=== PATIENT | male | born 1960 | race African-American/Black ===

== ENCOUNTER 2016-08-15 19:13 | Emergency (ER) | payer SELFPAY ==
[~2016-08-15] VITALS: Ht 170.2 cm; Wt 75.0 kg
[2016-08-15 19:27] VITALS: BP 130/78; PULSE 78; RESP 18; TEMP 97; O2SAT 99
--- NOTE | 2016-08-15 19:47 | PD ---
HPI Chief Complaint: Alcohol/Drug Intoxication Time Seen by Provider: 19:47 Travel History International Travel<30 days: No Contact w/Intl Traveler<30days: No Traveled to known affect area: No History of Present Illness HPI 55-year-old male presents to the emergency department under a Marie act for evaluation. Patient has been drinking alcohol this evening and appeared under the influence and unaware of his environment, resulting in Law enforcement brought him in for evaluation. Patient denies any acute needs. States that he has been drinking Sprite. Denies any illicit drug use. Patient has no other symptoms to report at this time. [facility] Past Medical History Medical History: Denies Significant Hx Blood Disorders: No Depression: No Cancer: No Cardiovascular Problems: No Diminished Hearing: No Endocrine: No Genitourinary: No Immune Disorder: No Musculoskeletal: No Neurologic: No Reproductive: No Respiratory: No Seizures: Yes Influenza Vaccination: No Past Surgical History AICD: No Arteriovenous Shunt: No Insulin Pump: No Joint Replacement: No Pacemaker: No Other Surgery: No Social History Alcohol Use: Yes (Daily) Tobacco Use: Yes (1 PACK A DAY) Substance Use: No Allergies-Medications (Allergen,Severity, Reaction): Coded Allergies: No Known Allergies (Verified , 08/15/16) Reported Meds & Prescriptions Reported Meds & Active Scripts Active No Active Prescriptions or Reported Medications Review of Systems ROS Limitations: Intoxication Except as stated in HPI: all other systems reviewed are Neg Physical Exam Exam Limitations: Intoxication Narrative GENERAL: Well-nourished, well-developed patient, strong smell of alcohol on his breath, in no acute distress SKIN: Warm and dry. HEAD: Normocephalic. Atraumatic EYES: No scleral icterus. No injection or drainage. NECK: Supple, trachea midline. No JVD or lymphadenopathy. CARDIOVASCULAR: Regular rate and rhythm without murmurs, gallops, or rubs. RESPIRATORY: Breath sounds equal bilaterally. No accessory muscle use. GASTROINTESTINAL: Abdomen soft, non-tender, nondistended. MUSCULOSKELETAL: No cyanosis, or edema. BACK: Nontender without obvious deformity. No CVA tenderness. Data Data Last Documented VS Vital Signs Date Time Temp Pulse Resp B/P Pulse Ox O2 Delivery O2 Flow Rate FiO2 08/15/16 19:27 97.0 78 18 130/78 99 Orders Complete Blood Count With Diff (08/15/16 19:46) Basic Metabolic Panel (Bmp) (08/15/16 19:46) Iv Access Insert/Monitor (08/15/16 19:46) Alcohol (Ethanol) (08/15/16 19:46) Diet Regular Basic (08/16/16 Breakfast) Haloperidol Inj (Haldol Inj) (08/15/16 20:14) Lorazepam Inj (Ativan Inj) (08/15/16 20:14) Labs Laboratory Tests Test 08/15/16 19:55 White Blood Count 7.5 TH/MM3 Red Blood Count 4.22 MIL/MM3 Hemoglobin 12.7 GM/DL Hematocrit 38.3 % Mean Corpuscular Volume 90.7 FL Mean Corpuscular Hemoglobin 30.0 PG Mean Corpuscular Hemoglobin 33.1 % Concent Red Cell Distribution Width 13.9 % Platelet Count 220 TH/MM3 Mean Platelet Volume 9.2 FL Neutrophils (%) (Auto) 53.2 % Lymphocytes (%) (Auto) 38.2 % Monocytes (%) (Auto) 6.4 % Eosinophils (%) (Auto) 1.3 % Basophils (%) (Auto) 0.9 % Neutrophils # (Auto) 4.0 TH/MM3 Lymphocytes # (Auto) 2.8 TH/MM3 Monocytes # (Auto) 0.5 TH/MM3 Eosinophils # (Auto) 0.1 TH/MM3 Basophils # (Auto) 0.1 TH/MM3 CBC Comment DIFF FINAL Differential Comment Sodium Level 136 MEQ/L Potassium Level 3.6 MEQ/L Chloride Level 101 MEQ/L Carbon Dioxide Level 23.8 MEQ/L Anion Gap 11 MEQ/L Blood Urea Nitrogen 8 MG/DL Creatinine 0.78 MG/DL Estimat Glomerular Filtration 126 ML/MIN Rate Random Glucose 76 MG/DL Calcium Level 8.4 MG/DL Ethyl Alcohol Level 326 MG/DL [facility] Medical Decision Making Medical Screen Exam Complete: Yes Emergency Medical Condition: Yes Medical Record Reviewed: Yes Differential Diagnosis Intoxication versus polysubstance abuse versus mood disorder versus personality disorder versus electrolyte abnormality Narrative Course 55-year-old male presents to the emergency department for evaluation under a Marie act. Patient has strong smell of alcohol on his breath. He is denying any acute medical needs. He seemed BMP are without acute concern. EtOH is 326. Patient will be monitored until he is clinically sober at which time he' ll be discharged Diagnosis Primary Impression: Alcohol intoxication Qualified Code: F10.120 - Alcohol intoxication, uncomplicated Scripts No Active Prescriptions or Reported Meds Condition: Claudia White Aug 15, 2016 19:47
[2016-08-15 20:12] LABS: BASOPHIL # 0.1 TH/MM3 (0-0.2); BASOPHIL % 0.9 % (0.0-2.0); EOSINOPHIL # 0.1 TH/MM3 (0-0.4); EOSINOPHIL % 1.3 % (0.0-4.0); HEMATOCRIT 38.3 % (39.0-51.0); HEMO FLAGS DIFF FINAL; LYMPH % 38.2 % (9.0-44.0); LYMPHOCYTE # 2.8 TH/MM3 (1.0-4.8); MEAN CELL VOLUME 90.7 FL (80.0-100.0); MEAN CORPUSCULAR HGB CONC 33.1 % (32.0-36.0); MONO % 6.4 % (0.0-8.0); NEUT % 53.2 % (16.0-70.0); PLATELET COUNT 220 TH/MM3 (150-450); RED BLOOD COUNT 4.22 MIL/MM3 (4.50-5.90); RED CELL DISTRIBUTION WIDTH 13.9 % (11.6-17.2); WHITE BLOOD COUNT 7.5 TH/MM3 (4.0-11.0)
[2016-08-15] MEDS ORDERED: HALOPERIDOL LACTATE 5 MG/ML AMP ONE (20:14)
[2016-08-15] MEDS ORDERED: LORazepam 2 MG/ML VIAL ONE (20:14)
[2016-08-15 20:38] LABS: BICARBONATE 23.8 MEQ/L (21.0-32.0); POTASSIUM 3.6 MEQ/L (3.5-5.1)
[2016-08-16] MEDS ORDERED: LORazepam 2 MG/ML VIAL IM ONE (01:15)
[2016-08-16] MEDS ORDERED: HALOPERIDOL LACTATE 5 MG/ML AMP IM ONE (01:15)
== END 2016-08-16 02:58 | disposition home or self-care (01) ==
LOC: NETRI 19:13 → NEPB 08-16 02:58
DX: F10.920 Alcohol use, unspecified with intoxication, uncomplicated (principal); Y90.8 Blood alcohol level of 240 mg/100 ml or more; F17.210 Nicotine dependence, cigarettes, uncomplicated
CPT/HCPCS: 80048; 80320; 85025; 99284; J1630; J2060

== ENCOUNTER 2016-10-03 20:37 | Emergency (ER) | payer OTHER ==
[~2016-10-03] VITALS: Ht 167.6 cm; Wt 80.0 kg
[2016-10-03 21:11] VITALS: BP 122/87; PULSE 103; RESP 20; TEMP 98.4; O2SAT 98
--- NOTE | 2016-10-03 21:42 | PD ---
HPI Chief Complaint: Medical Clearance Time Seen by Provider: 21:15 Travel History International Travel<30 days: No Contact w/Intl Traveler<30days: No Traveled to known affect area: No History of Present Illness HPI Patient 56-year-old male presents emergency department for evaluation after he was placed under Gomez's act. Patient was apparently stumbling around the street and when confronted by police officers he admitted to drinking fairly heavily tonight. Patient states he lives "in the building" has no one that he can call to come get him. He is escorted and police but is not under arrest currently. Patient has no complaints at this time except that he is here in the hospital. Denies any chest pain shortness of breath abdominal pain nausea vomiting or diarrhea. PFSH Past Medical History Blood Disorders: No Depression: No Cancer: No Cardiovascular Problems: No Diminished Hearing: No Endocrine: No Genitourinary: No Immune Disorder: No Musculoskeletal: No Neurologic: No Reproductive: No Respiratory: No Seizures: Yes Past Surgical History AICD: No Arteriovenous Shunt: No Insulin Pump: No Joint Replacement: No Pacemaker: No Other Surgery: No Social History Alcohol Use: Yes (Daily) Tobacco Use: Yes (1 PACK A DAY) Substance Use: No Allergies-Medications (Allergen,Severity, Reaction): Coded Allergies: No Known Allergies (Verified , 10/03/16) Reported Meds & Prescriptions Reported Meds & Active Scripts Active No Active Prescriptions or Reported Medications Review of Systems Except as stated in HPI: all other systems reviewed are Neg Physical Exam Narrative GENERAL: Well-developed well-nourished no apparent distress SKIN: Warm and dry. HEAD: Atraumatic. Normocephalic. EYES: Pupils equal and round. No scleral icterus. No injection or drainage. ENT: No nasal bleeding or discharge. Mucous membranes pink and moist. NECK: Trachea midline. No JVD. CARDIOVASCULAR: Regular rate and rhythm. No murmur appreciated. RESPIRATORY: No accessory muscle use. Clear to auscultation. Breath sounds equal bilaterally. GASTROINTESTINAL: Abdomen soft, non-tender, nondistended. Hepatic and splenic margins not palpable. MUSCULOSKELETAL: No obvious deformities. No clubbing. No cyanosis. No edema. NEUROLOGICAL: Awake and alert. No obvious cranial nerve deficits. Motor grossly within normal limits. Normal speech. PSYCHIATRIC: Appropriate mood and affect; insight and judgment normal. Data Data Last Documented VS Vital Signs Date Time Temp Pulse Resp B/P Pulse Ox O2 Delivery O2 Flow Rate FiO2 10/03/16 21:11 98.4 103 20 122/87 98 MDM Medical Decision Making Medical Screen Exam Complete: Yes Emergency Medical Condition: Yes Differential Diagnosis Alcohol intoxication, traumatic injury unlikely, dehydration (mild), poor social circumstance. Narrative Course Patient has no medical complaints warranting workup at this time. He is fairly belligerent and rude, he will be allowed to sleep it off in the emergency department at such time as he is clinically sober. At which time he at which time he can be discharged from the emergency department. Diagnosis Primary Impression: Alcohol intoxication Qualified Code: F10.120 - Alcohol intoxication, uncomplicated Scripts No Active Prescriptions or Reported Meds Disposition: DISCHARGE HOME Condition: Stable Mert Baer MD Oct 03, 2016 21:42
== END 2016-10-04 06:26 | disposition home or self-care (01) ==
LOC: NEDAMB 20:37 → NEPA 10-04 06:26
DX: F10.120 Alcohol abuse with intoxication, uncomplicated (principal); F17.210 Nicotine dependence, cigarettes, uncomplicated
CPT/HCPCS: 99284

== ENCOUNTER 2016-11-08 19:11 | Emergency (ER) | payer OTHER ==
[~2016-11-08] VITALS: Ht 175.3 cm; Wt 85.0 kg
[2016-11-08 19:20] VITALS: BP 133/90; PULSE 85; RESP 18; TEMP 98.4; O2SAT 95
--- NOTE | 2016-11-08 20:14 | PD ---
HPI Chief Complaint: Alcohol/Drug Intoxication Time Seen by Provider: 20:14 Travel History International Travel<30 days: No Contact w/Intl Traveler<30days: No Traveled to known affect area: No History of Present Illness HPI 56-year-old male with long-standing history of alcoholism to presents to emergency department for evaluation under Marie act. Patient states that he drinks 4-6 beers daily. 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 Denies suicidal or homicidal ideations. Denies any acute medical needs at this time. PFSH Past Medical History Blood Disorders: No Depression: No Cancer: No Cardiovascular Problems: No Diminished Hearing: No Endocrine: No Genitourinary: No Immune Disorder: No Musculoskeletal: No Neurologic: No Reproductive: No Respiratory: No Seizures: Yes Tetanus Vaccination: > 5 Years Influenza Vaccination: No Past Surgical History AICD: No Arteriovenous Shunt: No Insulin Pump: No Joint Replacement: No Pacemaker: No Other Surgery: No Social History Alcohol Use: Yes (Daily) Tobacco Use: Yes (1 PACK A DAY) Substance Use: No Allergies-Medications (Allergen,Severity, Reaction): Coded Allergies: No Known Allergies (Verified , 11/08/16) Reported Meds & Prescriptions Reported Meds & Active Scripts Active No Active Prescriptions or Reported Medications Review of Systems Except as stated in HPI: all other systems reviewed are Neg Physical Exam Narrative GENERAL: Well-nourished, well-developed patient, ambulatory and in no acute distress. SKIN: Focused skin assessment warm/dry. HEAD: Normocephalic. EYES: No scleral icterus. No injection or drainage. NECK: Supple, trachea midline. No JVD or lymphadenopathy. CARDIOVASCULAR: Regular rate and rhythm without murmurs, gallops, or rubs. RESPIRATORY: Breath sounds equal bilaterally. No accessory muscle use. GASTROINTESTINAL: Abdomen soft, non-tender, nondistended. MUSCULOSKELETAL: No cyanosis, or edema. BACK: Nontender without obvious deformity. No CVA tenderness. Data Data Last Documented VS Vital Signs Date Time Temp Pulse Resp B/P Pulse Ox O2 Delivery O2 Flow Rate FiO2 11/08/16 19:20 98.4 85 18 133/90 95 Orders Alcohol (Ethanol) (11/08/16 22:29) [facility] Medical Decision Making Medical Screen Exam Complete: Yes Emergency Medical Condition: Yes Medical Record Reviewed: Yes Differential Diagnosis Intoxication versus substance abuse versus mood disorder versus personality disorder Narrative Course 56-year-old male presents to emergency department under a Marie act. Patient appears without distress. He does smell like alcohol however he is ambulatory without difficulty. He'll be observed until he is able to find a safe mode of transportation home at which time he'll be discharged. 2230 abrasion is getting agitated wanting to leave. Alcohol level is drawn for further evaluation of patient's intoxication. Diagnosis Primary Impression: Alcohol intoxication Qualified Code: F10.120 - Alcohol intoxication, uncomplicated Referrals: [facility] (Out patient) Primary Care Physician Patient Instructions: Alcohol Intoxication (ED), General Instructions Additional Instructions: It is important that you consume alcohol moderation Follow-up with primary care provider Return immediately with any acute worsening of symptoms Med/Other Pt SpecificInfo: No Change to Meds Scripts No Active Prescriptions or Reported Meds Condition: Stable Claudia Linder Nov 08, 2016 20:14
== END 2016-11-09 06:15 | disposition home or self-care (01) ==
LOC: NEDAMB 19:11
DX: F10.120 Alcohol abuse with intoxication, uncomplicated (principal); F17.200 Nicotine dependence, unspecified, uncomplicated; Z86.69 Personal history of other diseases of the nervous system and sense organs
CPT/HCPCS: 80307; 99284

== ENCOUNTER 2016-11-18 18:38 | Emergency (ER) | payer SELFPAY ==
[2016-11-18 19:42] VITALS: BP 154/87; PULSE 76; RESP 20; TEMP 98.7; O2SAT 96
--- NOTE | 2016-11-18 19:55 | PD ---
HPI Chief Complaint: Psychiatric Symptoms Time Seen by Provider: 19:49 Travel History International Travel<30 days: No Contact w/Intl Traveler<30days: No Traveled to known affect area: No History of Present Illness HPI 56-year-old Afro[place] male brought in under the Gomez's act for EtOH intoxication. He was brought in by EMS. Patient has no medical complaints acutely. Patient is requesting no labs or IV medications. Patient has no history of trauma. He cannot tell me much he drank today. He has no known drug allergies. PFSH Past Medical History Blood Disorders: No Depression: No Cancer: No Cardiovascular Problems: No Diminished Hearing: No Endocrine: No Genitourinary: No Immune Disorder: No Musculoskeletal: No Neurologic: No Reproductive: No Respiratory: No Seizures: Yes Tetanus Vaccination: > 5 Years Past Surgical History AICD: No Arteriovenous Shunt: No Insulin Pump: No Joint Replacement: No Pacemaker: No Other Surgery: No Social History Alcohol Use: Yes (Daily) Tobacco Use: Yes (1 PACK A DAY) Substance Use: No Allergies-Medications (Allergen,Severity, Reaction): Coded Allergies: No Known Allergies (Verified , 11/18/16) Reported Meds & Prescriptions Reported Meds & Active Scripts Active No Active Prescriptions or Reported Medications Review of Systems ROS Limitations: Intoxication Except as stated in HPI: all other systems reviewed are Neg Physical Exam Exam Limitations: Intoxication Narrative GENERAL: Patient is inebriated, but able to answer questions and is cooperative. He is in no acute distress. SKIN: Warm and dry. Normal color. Normal turgor. No signs of trauma. HEAD: Atraumatic. Normocephalic. Nontender. EYES: Pupils equal and round. No scleral icterus. No injection or drainage. ENT: No nasal bleeding or discharge. Mucous membranes pink and moist. No dental injury. Pharynx is clear. Airway is patent. NECK: Trachea midline. Neck is supple nontender. CARDIOVASCULAR: Regular rate and rhythm. No murmurs gallops or rubs. RESPIRATORY: No accessory muscle use. Clear to auscultation. Breath sounds equal bilaterally. GASTROINTESTINAL: Abdomen soft, non-tender, nondistended. Hepatic and splenic margins not palpable. MUSCULOSKELETAL: Extremities without clubbing, cyanosis, or edema. No obvious deformities. NEUROLOGICAL: Awake and alert. No obvious cranial nerve deficits. Motor grossly within normal limits. Five out of 5 muscle strength in the arms and legs. Normal speech. PSYCHIATRIC: Appropriate mood and affect; insight and judgment normal. Data Data Last Documented VS Vital Signs Date Time Temp Pulse Resp B/P Pulse Ox O2 Delivery O2 Flow Rate FiO2 11/18/16 19:42 98.7 76 20 154/87 96 Orders Diet Regular Basic (11/19/16 Dinner) Ondansetron Odt (Zofran Odt) (11/18/16 20:00) [facility] Medical Decision Making Medical Screen Exam Complete: Yes Emergency Medical Condition: Yes Medical Record Reviewed: Yes Differential Diagnosis Paulina's act. EtOH intoxication. Nauseous. Narrative Course Patient is medically stable at time of exam. No labs are felt necessary at this time. Patient is given 4 mg Zofran ODT by mouth. Patient is given a meal and fluids by mouth. Patient is to sleep it off until he can ambulate with safety, and be discharged at that time. Diagnosis Primary Impression: Alcohol intoxication Qualified Code: F10.120 - Alcohol intoxication, uncomplicated Referrals: [facility] as needed Patient Instructions: Abuse of Alcohol (ED), General Instructions Med/Other Pt SpecificInfo: No Meds Exist/No RX given Scripts No Active Prescriptions or Reported Meds Disposition: 01 DISCHARGE HOME Condition: Stable Anthony Cadena Nov 18, 2016 19:55
[2016-11-18] MEDS ORDERED: ONDANSETRON ODT 4 MG TAB PO ONE (20:00)
== END 2016-11-18 22:02 | disposition home or self-care (01) ==
LOC: NEPE 18:38
DX: F10.120 Alcohol abuse with intoxication, uncomplicated (principal); F17.210 Nicotine dependence, cigarettes, uncomplicated
CPT/HCPCS: 99284

== ENCOUNTER 2017-01-02 21:26 | Emergency (ER) | payer OTHER ==
[~2017-01-02] VITALS: Ht 182.9 cm; Wt 95.0 kg
[2017-01-02 21:33] VITALS: BP 119/79; PULSE 93; RESP 18; TEMP 98.2; O2SAT 94
[2017-01-03 01:00] VITALS: BP 111/73; PULSE 87; RESP 16; O2SAT 97
--- NOTE | 2017-01-03 01:09 | PD ---
HPI Chief Complaint: Alcohol/Drug Intoxication Time Seen by Provider: 01:06 Travel History International Travel<30 days: No Contact w/Intl Traveler<30days: No Traveled to known affect area: No History of Present Illness HPI 56-year-old black male presents to emergency department under Marchman act due to alcohol intoxication. This is a patient known to the ER staff and myself her prior visits for the same. The patient states that is not a threat to himself or others. He merely states that is intoxicated. He would like to go home. He denies any toxic ingestions. PFSH Past Medical History Narrative Medical Seizure disorder, alcoholism Blood Disorders: No Depression: No Cancer: No Cardiovascular Problems: No Diminished Hearing: No Endocrine: No Genitourinary: No Immune Disorder: No Musculoskeletal: No Neurologic: No Reproductive: No Respiratory: No Seizures: Yes Past Surgical History AICD: No Arteriovenous Shunt: No Insulin Pump: No Joint Replacement: No Pacemaker: No Other Surgery: No Social History Alcohol Use: Yes (Daily) Tobacco Use: Yes (1 PACK A DAY) Substance Use: No Allergies-Medications (Allergen,Severity, Reaction): Coded Allergies: No Known Allergies (Verified , 01/02/17) Reported Meds & Prescriptions Reported Meds & Active Scripts Active No Active Prescriptions or Reported Medications Review of Systems ROS Limitations: Intoxication Physical Exam Narrative GENERAL: Well-nourished, well-developed patient. Smells of EtOH and appears intoxicated SKIN: Warm and dry. HEAD: Normocephalic and atraumatic. EYES: No scleral icterus. No injection or drainage. ENT: No nasal drainage noted. Mucous membranes pink. Airway patent. NECK: Supple, trachea midline. Moves head freely without obvious discomfort. CARDIOVASCULAR: Regular rate and rhythm without murmurs, gallops, or rubs. RESPIRATORY: Breath sounds equal bilaterally. No accessory muscle use. GASTROINTESTINAL: Abdomen soft, non-tender, nondistended. EXTREMITIES: No cyanosis or edema. BACK: Nontender without obvious deformity. No CVA tenderness. NEURO: Patient is alert and oriented. no sensorimotor deficits. Nonfocal. Slurred speech. PSYCH: No delusions. No auditory or visual hallucinations. Data Data Last Documented VS Vital Signs Date Time Temp Pulse Resp B/P Pulse Ox O2 Delivery O2 Flow Rate FiO2 01/03/17 01:00 87 16 111/73 97 Room Air 01/02/17 21:33 98.2 [facility] Medical Decision Making Medical Screen Exam Complete: Yes Emergency Medical Condition: Yes Medical Record Reviewed: Yes Differential Diagnosis Differential diagnoses: Alcohol intoxication, substance abuse, electrolyte abnormality, malingering Narrative Course This is an intoxicated 56-year-old black male known to myself and the ER staff for alcohol abuse. He will be allowed to sleep it off here in the ER once exhibits sobriety the patient will have his Marchman act lifted and he'll be able to go home. This is alcohol intoxication, Marchman act Diagnosis Primary Impression: Alcohol intoxication Qualified Code: F10.920 - Alcohol intoxication, uncomplicated Additional Impression: Marchman act-lifted Patient Instructions: General Instructions Additional Instructions: Rest. Increase fluids. Avoid alcohol. Avoid illegal substances. Follow-up with [facility] for detox. Do not operate a car or any heavy machinery under the influence of alcohol or drugs. Follow-up with a medical doctor this week. Return to the ER for emergencies Med/Other Pt SpecificInfo: No Meds Exist/No RX given Scripts No Active Prescriptions or Reported Meds Disposition: 01 DISCHARGE HOME Condition: Stable (neuro) Haroon Lopez January 03, 2017 01:09
[2017-01-03 04:19] VITALS: BP 115/70; PULSE 68; RESP 18; O2SAT 99
== END 2017-01-03 06:02 | disposition home or self-care (01) ==
LOC: NEDAMB 21:26 → NEPD 01-03 06:02
DX: F10.120 Alcohol abuse with intoxication, uncomplicated (principal); F17.200 Nicotine dependence, unspecified, uncomplicated
CPT/HCPCS: 99282

== ENCOUNTER 2017-06-08 18:08 | Emergency (ER) | payer OTHER ==
[~2017-06-08] VITALS: Ht 182.9 cm; Wt 100.0 kg
[2017-06-08 19:11] VITALS: RESP 16
[2017-06-08 19:17] VITALS: BP 131/91; PULSE 79; RESP 16; O2SAT 98
--- NOTE | 2017-06-08 19:25 | PD ---
HPI Chief Complaint: Alcohol/Drug Intoxication Time Seen by Provider: 18:57 Travel History International Travel<30 days: No Contact w/Intl Traveler<30days: No Traveled to known affect area: No History of Present Illness HPI 56-year-old male presents to the emergency room under Marchman act for evaluation of alcohol intoxication. Patient is well-known to the emergency room and has been here multiple times for the same. According to police report , patient was wandering down the road, slurring speech, and unable to answer questions appropriately. Patient denies any medical complaints at this time. Denies any chronic medical conditions or daily medications. Denies any history of stroke. He is most concerned with eating and asked if he could get something in his stomach and then go home. Patient states he drinks daily but will not quantify. Denies any illicit drug use. PFSH Past Medical History Blood Disorders: No Depression: No Cancer: No Cardiovascular Problems: No Diminished Hearing: No Endocrine: No Genitourinary: No Immune Disorder: No Musculoskeletal: No Neurologic: No Reproductive: No Respiratory: No Immunizations Current: Yes Seizures: Yes Past Surgical History AICD: No Arteriovenous Shunt: No Insulin Pump: No Joint Replacement: No Pacemaker: No Other Surgery: No Social History Alcohol Use: Yes (Daily) Tobacco Use: Yes (1 PACK A DAY) Substance Use: No Allergies-Medications (Allergen,Severity, Reaction): Coded Allergies: No Known Allergies (Verified , 01/02/17) Reported Meds & Prescriptions Reported Meds & Active Scripts Active No Active Prescriptions or Reported Medications Review of Systems Except as stated in HPI: all other systems reviewed are Neg Physical Exam Narrative GENERAL: Well-nourished, well-developed male in no acute distress. Afebrile. Ambulatory. SKIN: Focused skin assessment warm/dry. HEAD: Normocephalic. EYES: No scleral icterus. No injection or drainage. NECK: Supple, trachea midline. No JVD or lymphadenopathy. CARDIOVASCULAR: Regular rate and rhythm without murmurs, gallops, or rubs. RESPIRATORY: Breath sounds equal bilaterally. No accessory muscle use. NEUROLOGICAL: Awake and alert. Cranial nerves II through XII intact. Motor and sensory grossly within normal limits. Five out of 5 muscle strength in all muscle groups. Normal speech. No pronator drift in upper or lower extremities. Data Data Last Documented VS Vital Signs Date Time Temp Pulse Resp B/P (MAP) Pulse Ox O2 Delivery O2 Flow Rate FiO2 06/08/17 19:17 79 16 131/91 (104) 98 Room Air Orders Orders Alcohol (Ethanol) (06/08/17 19:14) Labs Laboratory Tests Test 06/08/17 19:43 Ethyl Alcohol Level 289 MG/DL [facility] Medical Decision Making Medical Screen Exam Complete: Yes Emergency Medical Condition: Yes Medical Record Reviewed: Yes Differential Diagnosis Alcohol intoxication, alcohol abuse, drug induced mood disorder, CVA unlikely Narrative Course 56-year-old male presents to the emergency room under Diana coronel for alcohol intoxication after being found wandering down the road, stumbling, and slurring his speech. Patient has been seen in the emergency room multiple times for the same. States he doesn't know why he is here and he is hungry, requesting food. Physical exam is reassuring. Patient is answering questions appropriately, though slowly. No focal neurological deficits. Vital signs stable. She will be given food. Alcohol level obtained and is 289. He will be monitored in the ER and discharged when clinically sober. He understands and agrees to plan. Diagnosis Primary Impression: Alcohol intoxication Qualified Codes: F10.920 - Alcohol use, unspecified with intoxication, uncomplicated Referrals: [facility] (Out patient) Additional Instructions: Follow-up with [facility] for detox. Return to the emergency room for worsening symptoms. Scripts No Active Prescriptions or Reported Meds Disposition: 01 DISCHARGE HOME Condition: Stable Ni Pearson Jun 08, 2017 19:25
[2017-06-09 01:11] VITALS: BP 140/76
== END 2017-06-09 01:10 | disposition home or self-care (01) ==
LOC: NEDAMB 18:08
DX: F10.129 Alcohol abuse with intoxication, unspecified (principal); R56.9 Unspecified convulsions; F17.200 Nicotine dependence, unspecified, uncomplicated
CPT/HCPCS: 80307; 99283

== ENCOUNTER 2017-07-11 21:39 | Emergency (ER) | payer OTHER ==
[2017-07-11 22:07] VITALS: BP 133/91; PULSE 73; RESP 18; TEMP 98.2; O2SAT 96
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
== END 2017-07-12 02:32 | disposition home or self-care (01) ==
LOC: NEPE 21:39
DX: F10.129 Alcohol abuse with intoxication, unspecified (principal); F17.200 Nicotine dependence, unspecified, uncomplicated
CPT/HCPCS: 99283

== ENCOUNTER 2017-07-14 17:23 | Inpatient (IN) | payer OTHER ==
[~2017-07-14] VITALS: Ht 180.3 cm; Wt 85.0 kg
[2017-07-14] MEDS ORDERED: IOHEXOL 350 MG/ML 10 ML VIAL (for RAD DIAG) IVCONTRAST ONE (17:24)
[2017-07-14] MEDS ORDERED: LIDOCAINE 1%/EPINEPHrine 1:100,000 SOLN 20 ML VIAL ONE (17:27)
[2017-07-14] MEDS ORDERED: ceFAZolin 2 GM PREMIX 50 ML ONE (17:27)
[2017-07-14] MEDS ORDERED: TETANUS IMMUNE GLOBULIN (HUMAN) 250 UNITS/ML SYRINGE ONE (17:27)
[2017-07-14 17:42] VITALS: O2SAT 97
[2017-07-14 17:43] VITALS: O2SAT 97
[2017-07-14 17:48] LABS: AUTOMATED NEUTROPHIL # 3.5 TH/MM3 (1.8-7.7); BASOPHIL # 0.1 TH/MM3 (0-0.2); BASOPHIL % 1.2 % (0.0-2.0); EOSINOPHIL # 0.2 TH/MM3 (0-0.4); EOSINOPHIL % 2.5 % (0.0-4.0); HEMATOCRIT 40.8 % (39.0-51.0); HEMOGLOBIN 13.4 GM/DL (13.0-17.0); LYMPH % 43.3 % (9.0-44.0); LYMPHOCYTE # 3.2 TH/MM3 (1.0-4.8); MEAN CELL VOLUME 93.3 FL (80.0-100.0); MEAN CORPUSCULAR HEMOGLOBIN 30.6 PG (27.0-34.0); MEAN CORPUSCULAR HGB CONC 32.8 % (32.0-36.0); MEAN PLATELET VOLUME 9.1 FL (7.0-11.0); MONO % 5.9 % (0.0-8.0); MONOCYTE # 0.4 TH/MM3 (0-0.9); NEUT % 47.1 % (16.0-70.0); PLATELET COUNT 231 TH/MM3 (150-450); RED BLOOD COUNT 4.38 MIL/MM3 (4.50-5.90); RED CELL DISTRIBUTION WIDTH 14.3 % (11.6-17.2); WHITE BLOOD COUNT 7.4 TH/MM3 (4.0-11.0)
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
[2017-07-14 18:05] LABS: PROTHROMBIN TIME - PATIENT 10.3 SEC (9.8-11.6)
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
[2017-07-14 18:25] VITALS: BP 153/89; PULSE 73; RESP 17; O2SAT 96
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
[2017-07-14] MEDS ORDERED: ONDANSETRON HCL 4 MG/2 ML VIAL IV PUSH PRN (19:15)
[2017-07-14] MEDS ORDERED: MISCELLANEOUS NURSING INFORMATION XX SCH (19:15)
[2017-07-14] MEDS ORDERED: CHLORHEXIDINE GLUCONATE 2 % 1 PACK (2 CLOTHS) TOP PRN (19:15)
[2017-07-14] MEDS ORDERED: ACETAMINOPHEN/HYDROcodone 325 MG/5 MG TAB PO PRN (19:15)
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
[2017-07-14 19:40] VITALS: BP 114/75; PULSE 80; RESP 18; O2SAT 97
[2017-07-14] MEDS: MULTIVITAMIN INJ 10 ML, THIAMINE INJ 100 MG, FOLIC ACID INJ 1 MG in SODIUM CHLORID 0.9%... IV SCH (20:09)
[2017-07-14 22:10] VITALS: BP 111/65; PULSE 69; RESP 20; TEMP 98.2; O2SAT 96
[2017-07-14] MEDS: DOCUSATE SODIUM 100 MG CAP PO SCH (22:20)
[2017-07-14] MEDS: ceFAZolin 2 GM PREMIX 50 ML IV SCH (22:26)
[2017-07-14] MEDS: ACETAMINOPHEN/HYDROcodone 325 MG/5 MG TAB PO PRN (22:52)
[2017-07-15] VITALS (8 sets, daily range): BP systolic 112–154; BP diastolic 62–84; PULSE 61–90; RESP 18–20; TEMP 97.8–99.2; O2SAT 95–97
[2017-07-15 03:43] LABS: AUTOMATED NEUTROPHIL # 5.7 TH/MM3 (1.8-7.7); BASOPHIL % 0.3 % (0.0-2.0); EOSINOPHIL % 0.1 % (0.0-4.0); HEMATOCRIT 35.3 % (39.0-51.0); HEMOGLOBIN 11.8 GM/DL (13.0-17.0); LYMPH % 15.5 % (9.0-44.0); LYMPHOCYTE # 1.1 TH/MM3 (1.0-4.8); MEAN CELL VOLUME 93.5 FL (80.0-100.0); MEAN CORPUSCULAR HEMOGLOBIN 31.2 PG (27.0-34.0); MEAN CORPUSCULAR HGB CONC 33.4 % (32.0-36.0); MONO % 6.3 % (0.0-8.0); MONOCYTE # 0.5 TH/MM3 (0-0.9); NEUT % 77.8 % (16.0-70.0); PLATELET COUNT 168 TH/MM3 (150-450); RED BLOOD COUNT 3.78 MIL/MM3 (4.50-5.90); RED CELL DISTRIBUTION WIDTH 14.4 % (11.6-17.2); WHITE BLOOD COUNT 7.3 TH/MM3 (4.0-11.0)
[2017-07-15] MEDS ORDERED: CHLORHEXIDINE GLUCONATE 2 % 1 PACK (2 CLOTHS) TOP SCH (04:00)
[2017-07-15 04:11] LABS: ALBUMIN 3.1 GM/DL (3.4-5.0); AST (GOT) 49 U/L (15-37); BICARBONATE 22.2 MEQ/L (21.0-32.0); BLOOD UREA NITROGEN 5 MG/DL (7-18); CALCIUM 7.5 MG/DL (8.5-10.1); CHLORIDE 105 MEQ/L (98-107); CREATININE 0.75 MG/DL (0.60-1.30); GLOMERULAR FILTRATION RATE 109 ML/MIN (>89); GLUCOSE,RANDOM 98 MG/DL (74-106); SODIUM (NA) 138 MEQ/L (136-145)
[2017-07-15 04:15] LABS: ALKALINE PHOSPHATASE 67 U/L (45-117); ALT (GPT) 27 U/L (12-78); TOTAL BILIRUBIN ADULT 0.6 MG/DL (0.2-1.0); TOTAL PROTEIN 6.5 GM/DL (6.4-8.2)
[2017-07-15] MEDS: ceFAZolin 2 GM PREMIX 50 ML IV SCH ×3 (05:19→22:19)
[2017-07-15] MEDS ORDERED: DOCU1CAP39 PO (08:59)
[2017-07-15] MEDS: ACETAMINOPHEN/HYDROcodone 325 MG/5 MG TAB PO PRN ×3 (09:29→22:17)
[2017-07-15] MEDS: DOCUSATE SODIUM 100 MG CAP PO SCH ×2 (09:30→22:16)
[2017-07-15] MEDS: MORPHINE SULFATE 4 MG/ML INJ IV PUSH PRN (11:35)
[2017-07-15] MEDS: MULTIVITAMIN INJ 10 ML, THIAMINE INJ 100 MG, FOLIC ACID INJ 1 MG in SODIUM CHLORID 0.9%... IV SCH (22:21)
[2017-07-16] VITALS: BP 169/86; PULSE 84; RESP 20; TEMP 98.6; O2SAT 95
[2017-07-16 04:58] VITALS: BP 155/94; PULSE 82; RESP 20; TEMP 98.3; O2SAT 97
[2017-07-16] MEDS: ceFAZolin 2 GM PREMIX 50 ML IV SCH ×3 (05:25→21:12)
[2017-07-16] MEDS: ACETAMINOPHEN/HYDROcodone 325 MG/5 MG TAB PO PRN ×2 (05:27→09:27)
[2017-07-16 08:00] VITALS: PULSE 63
[2017-07-16] MEDS: DOCUSATE SODIUM 100 MG CAP PO SCH ×2 (09:28→21:11)
[2017-07-16] MEDS ORDERED: PNEUMOCOCCAL POLYVALENT INJ 25 MCG/0.5 ML SYR IM ONE (10:00)
[2017-07-16 12:00] VITALS: BP_SYST 125; BP_SYST 150; BP_DIAS 82; BP_DIAS 83; PULSE 100; PULSE 77; PULSE 81; RESP 18; TEMP 98.5; O2SAT 95; O2SAT 98
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
[2017-07-16] MEDS: MORPHINE SULFATE 4 MG/ML INJ IV PUSH PRN ×2 (13:36→21:01)
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
[2017-07-16] MEDS: ACETAMINOPHEN 1000 MG/100 ML 100 ML IV SCH ×2 (15:57→21:12)
[2017-07-16 16:00] VITALS: BP 143/100; PULSE 80; PULSE 84; RESP 18; TEMP 98.7; O2SAT 96
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
[2017-07-16] MEDS: ENOXAPARIN SODIUM 30 MG/0.3 ML SYRINGE SQ SCH (18:12)
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
[2017-07-16 20:00] VITALS: BP 149/97; PULSE 99; RESP 18; TEMP 98.2; O2SAT 98
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
[2017-07-16] MEDS: MAGNESIUM HYDROXIDE SUSP 30 ML CUP PO SCH (21:11)
[2017-07-16] MEDS: MULTIVITAMIN INJ 10 ML, THIAMINE INJ 100 MG, FOLIC ACID INJ 1 MG in SODIUM CHLORID 0.9%... IV SCH (21:12)
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
[2017-07-17] VITALS (7 sets, daily range): BP systolic 105–163; BP diastolic 65–93; PULSE 71–100; RESP 18–19; TEMP 97.9–98.7; O2SAT 92–97
[2017-07-17] MEDS: ACETAMINOPHEN 1000 MG/100 ML 100 ML IV SCH ×4 (02:17→20:54)
[2017-07-17] MEDS ORDERED: SODIUM CHLORID 0.9% 500 ML IV PRN (04:45)
[2017-07-17] MEDS ORDERED: LACTATED RINGER'S 1000 ML IV PRN (04:45)
[2017-07-17] MEDS ORDERED: CHLORHEXIDINE GLUCONATE 2 % 1 PACK (2 CLOTHS) TOPICAL PRN (04:45)
[2017-07-17] MEDS ORDERED: METOPROLOL TARTRATE 25 MG TAB PO PRN (04:45)
[2017-07-17] MEDS ORDERED: POVIDONE IODINE 5% (ANTISEPSIS KIT) 4 APPLICATIONS EACH NARE PRN (04:45)
[2017-07-17] MEDS: ENOXAPARIN SODIUM 30 MG/0.3 ML SYRINGE SQ SCH (06:12)
[2017-07-17] MEDS: ceFAZolin 2 GM PREMIX 50 ML IV SCH ×2 (06:12→18:13)
[2017-07-17] MEDS: MORPHINE SULFATE 4 MG/ML INJ IV PUSH PRN (07:36)
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
[2017-07-17] MEDS: DOCUSATE SODIUM 100 MG CAP PO SCH ×2 (08:40→20:54)
[2017-07-17] MEDS: MAGNESIUM HYDROXIDE SUSP 30 ML CUP PO SCH ×2 (08:41→20:54)
--- NOTE | 2017-07-17 11:36 | EKG ---
Date Performed: 07/17/2017 Time Performed: 07:40:14 PTAGE: 89 years EKG: Sinus rhythm VOLTAGE CRITERIA FOR LVH ABNORMAL ECG NO PREVIOUS TRACING DOCTOR: Pedro Gore Interpretating Date/Time 07/17/2017 11:35:28
[2017-07-17] MEDS ORDERED: LABETALOL HCL 100 MG/20 ML VIAL IV ONE (12:00)
[2017-07-17] MEDS ORDERED: ONDANSETRON HCL 4 MG/2 ML VIAL IV PUSH ONE (12:00)
[2017-07-17] MEDS ORDERED: ePHEDrine/NS 25 MG/5 ML SYRINGE IV ONE (12:00)
[2017-07-17] MEDS ORDERED: LIDOCAINE HCL 1% PF 5 ML SYRINGE OTHER ONE (12:00)
[2017-07-17] MEDS: KETOROLAC TROMETHAMINE 30 MG/ML (IVP) VIAL IV PUSH SCH ×2 (12:00→18:00)
[2017-07-17] MEDS ORDERED: PROPOFOL 200 MG/20 ML AMP IV ONE (12:00)
[2017-07-17] MEDS ORDERED: STERILE WATER FOR INJECTION 20 ML VIAL IV ONE (12:00)
[2017-07-17] MEDS ORDERED: ceFAZolin INJ 1,000 MG VIAL ONE (13:19)
[2017-07-17] MEDS ORDERED: VANCOMYCIN HCL 1000 MG VIAL ONE (13:19)
[2017-07-17] MEDS ORDERED: GENTAMICIN SULFATE 80 MG/2 ML VIAL ONE (13:26)
[2017-07-17] MEDS ORDERED: Post-op Orders (for Pharmacy) XX ONE (13:30)
[2017-07-17] MEDS ORDERED: ENOXAPARIN SODIUM 30 MG/0.3 ML SYRINGE SQ SCH (13:30)
[2017-07-17] MEDS ORDERED: MISCELLANEOUS NURSING INFORMATION XX PRN (13:30)
[2017-07-17] MEDS ORDERED: MORPHINE SULFATE 4 MG/ML INJ IV PUSH PRN (13:30)
[2017-07-17] MEDS ORDERED: NALOXONE HCL 0.4 MG/ML AMP IV PUSH PRN (13:30)
[2017-07-17] MEDS: ERGOCALCIFEROL (VIT D2) 50,000 UNIT CAP PO SCH (13:30)
[2017-07-17] MEDS ORDERED: diphenhydrAMINE HCL 25 MG CAP PO PRN (13:30)
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
[2017-07-17] MEDS ORDERED: *morphine SULFATE 8 MG/ML PERIprocedure ONLY ONE ×2 (15:26→15:33)
[2017-07-17] MEDS ORDERED: *ENALAPRILAT 1.25 MG/ML VIAL PERIprocedural Use ONLY ONE ×2 (15:34→16:00)
[2017-07-17] MEDS ORDERED: *HYDROmorphone PF 1 MG VIAL PERIprocedural Use ONLY ONE (15:43)
--- NOTE | 2017-07-17 16:04 | RADRPT ---
EXAM DATE/TIME: 07/17/2017 14:16 [facility] COMPARISON: KNEE RIGHT LTD (1 OR 2 VWS), July 16, 2017, 20:36. INDICATIONS : ORIF right tibal plateau fracture. MEDICAL HISTORY : Unobtainable. SURGICAL HISTORY : Unobtainable. ENCOUNTER: Subsequent ACUITY: 3 days PAIN SCORE: Non-responsive. LOCATION: Right knee. FINDINGS: Two view examination of the right knee demonstrates postsurgical changes following open reduction and internal fixation of a lateral tibial plateau fracture the right knee. An extra medullary plate with stabilization screws have been placed. There is good alignment of the fracture fragments. Lateral donn int compartment appears to be anatomically aligned. CONCLUSION: Satisfactory postoperative appearance of the right knee status post ORIF of a lateral tibial plateau fracture. Obed Allen MD on July 17, 2017 at 16:01 Board Certified Radiologist. This report was verified electronically.
--- NOTE | 2017-07-17 16:09 | RADRPT ---
EXAM DATE/TIME: 07/17/2017 14:16 [facility] COMPARISON: KNEE LEFT LTD (1 OR 2VWS), July 16, 2017, 15:23. INDICATIONS : Placement of external fixator. MEDICAL HISTORY : Unobtainable. SURGICAL HISTORY : Unobtainable. ENCOUNTER: Subsequent ACUITY: 3 days PAIN SCORE: Non-responsive. LOCATION: Left knee. FINDINGS: Two view examination of the left knee demonstrates comminuted fractures of the proximal tibia and fib al. There is satisfactory apposition the fracture fragments following placement of an external fixat or. CONCLUSION: Stable satisfactory alignment of comminuted fractures involving the proximal left tibia and fibula fo llowing placement of an external fixator. Obed Allen MD on July 17, 2017 at 16:02 Board Certified Radiologist. This report was verified electronically.
[2017-07-17] MEDS: KETOROLAC TROMETHAMINE 30 MG/ML (IVP) VIAL IVP SCH ×2 (16:45→22:00)
[2017-07-17] MEDS ORDERED: DO NOT ADM ANY ANTICOAGULANT DRUGS PRN (17:00)
[2017-07-17] MEDS: CALCIUM/VITAMIN D 250 MG/125 U TAB PO SCH (18:00)
[2017-07-17] MEDS: LACTATED RINGER'S 1000 ML INJ 1,000 ML IV SCH (21:00)
[2017-07-18] VITALS (7 sets, daily range): BP systolic 107–149; BP diastolic 67–90; PULSE 77–98; RESP 16–20; TEMP 97.4–99.1; O2SAT 94–100
[2017-07-18] MEDS: KETOROLAC TROMETHAMINE 30 MG/ML (IVP) VIAL IV PUSH SCH ×2 (01:59→06:17)
[2017-07-18] MEDS: LACTATED RINGER'S 1000 ML INJ 1,000 ML IV SCH ×2 (02:00→03:30)
[2017-07-18] MEDS: ceFAZolin 2 GM PREMIX 50 ML IV SCH ×3 (02:00→18:06)
[2017-07-18] MEDS: KETOROLAC TROMETHAMINE 30 MG/ML (IVP) VIAL IVP SCH ×2 (06:00→13:28)
--- NOTE | 2017-07-18 07:01 | PD.ORT.PN ---
Subjective Subjective Remarks Patient awake and alert. No acute distress. Pain reasonably well-controlled Objective Vitals Vital Signs Date Time Temp Pulse Resp B/P (MAP) Pulse Ox O2 Delivery O2 Flow Rate FiO2 07/18/17 00:00 97.4 77 18 107/67 (80) 94 07/17/17 20:00 97.9 83 18 105/65 (78) 93 07/17/17 20:00 100 07/17/17 16:55 58 14 158/94 (115) 100 Nasal Cannula 2 07/17/17 16:45 66 14 161/99 (119) 100 Nasal Cannula 2 07/17/17 16:30 68 14 154/108 (123) 95 Nasal Cannula 2 07/17/17 16:15 65 14 175/101 (125) 100 Nasal Cannula 2 07/17/17 16:00 79 14 163/94 (117) 99 Nasal Cannula 2 07/17/17 15:45 70 14 166/107 (126) 100 Nasal Cannula 2 07/17/17 15:30 71 14 179/118 (138) 100 Nasal Cannula 2 07/17/17 15:15 73 14 160/103 (122) 100 Nasal Cannula 2 07/17/17 15:06 98.2 98 14 156/104 (121) 98 Nasal Cannula 2 07/17/17 10:47 98.7 73 19 152/87 (108) 96 07/17/17 09:11 19 07/17/17 08:00 89 07/17/17 07:41 17 07/17/17 07:12 18 I/O 07/17/17 07/17/17 07/17/17 07/18/17 07/18/17 07/18/17 07:00 15:00 23:00 07:00 15:00 23:00 Intake Total 610 ml 650 ml 930 ml Output Total 225 ml 275 ml Balance 610 ml -225 ml 375 ml 930 ml IV Total 610 ml 100 ml 930 ml Other 550 ml Output Urine Total 225 ml 200 ml Estimated Blood Loss 75 ml Result Diagram: 07/15/17 0333 07/15/17 033 Objective Remarks Left leg--external fixation in place, pin sites clean, mild to moderate swelling , neurovascularly intact left foot Right leg--clean dry dressing in place., Knee immobilizer on, neurovascularly intact right foot Assessment & Plan Assessment and Plan Left tibia plateau fracture --Postoperative day #1 status post closed reduction external fixation Nonweightbearing Possible ORIF on Sunday if swelling improves Ice and elevate left leg Right tibial plateau fracture--postop day #1 status post open reduction internal fixation Nonweightbearing right leg CK S Physical therapy for passive range of motion Asaf Collazo MD Jul 18, 2017 07:01
[2017-07-18] MEDS: CALCIUM/VITAMIN D 250 MG/125 U TAB PO SCH ×3 (09:03→18:06)
[2017-07-18] MEDS: MAGNESIUM HYDROXIDE SUSP 30 ML CUP PO SCH (09:03)
[2017-07-18] MEDS: CHOLECALCIFEROL (VIT D3) 1000 UNIT TAB PO SCH (09:03)
[2017-07-18] MEDS: DOCUSATE SODIUM 100 MG CAP PO SCH (09:04)
[2017-07-18 10:46] LABS: HEMATOCRIT 29.1 % (39.0-51.0); HEMOGLOBIN 9.6 GM/DL (13.0-17.0)
[2017-07-18] MEDS ORDERED: ENOXAPARIN SODIUM 30 MG/0.3 ML SYRINGE SQ SCH (13:00)
[2017-07-18] MEDS: VANCOMYCIN INJ 1,000 MG in SODIUM CHLOR 0.9% 250 ML INJ 250 ML IV SCH (13:28)
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
[2017-07-18] MEDS ORDERED: LACTULOSE SYRUP 20 GM/30 ML CUP PO PRN (13:45)
[2017-07-18] MEDS ORDERED: LACTULOSE SYRUP 20 GM/30 ML CUP PO ONE (13:45)
[2017-07-18] MEDS: ACETAMINOPHEN/HYDROcodone 325 MG/10 MG TAB PO PRN ×2 (14:57→20:33)
[2017-07-18] MEDS: MULTIVITAMINS/MINERALS THERAPEUTIC TAB PO SCH (15:57)
[2017-07-18] MEDS: FOLIC ACID 1 MG TAB PO SCH (15:57)
[2017-07-18] MEDS: THIAMINE HCL 100 MG TAB PO SCH (15:58)
[2017-07-18] MEDS: DOCUSATE SODIUM 50 MG/SENNA 8.6 MG TAB PO SCH (21:00)
[2017-07-19] VITALS (10 sets, daily range): BP systolic 112–159; BP diastolic 75–92; PULSE 78–96; RESP 18–20; TEMP 97–99.4; O2SAT 95–97
[2017-07-19] MEDS: ceFAZolin 2 GM PREMIX 50 ML IV SCH ×2 (01:13→10:58)
[2017-07-19] MEDS: VANCOMYCIN INJ 1,000 MG in SODIUM CHLOR 0.9% 250 ML INJ 250 ML IV SCH ×2 (01:55→13:47)
[2017-07-19] MEDS: ACETAMINOPHEN/HYDROcodone 325 MG/10 MG TAB PO PRN ×3 (04:02→21:35)
[2017-07-19 05:05] LABS: HEMATOCRIT 30.2 % (39.0-51.0); HEMOGLOBIN 9.7 GM/DL (13.0-17.0)
[2017-07-19] MEDS: MORPHINE SULFATE 2 MG/ML INJ IV PUSH PRN (06:23)
[2017-07-19] MEDS ORDERED: ENOXAPARIN SODIUM 30 MG/0.3 ML SYRINGE SQ ONE (07:00)
[2017-07-19] MEDS: THIAMINE HCL 100 MG TAB PO SCH (08:29)
[2017-07-19] MEDS: CALCIUM/VITAMIN D 250 MG/125 U TAB PO SCH ×3 (08:29→17:09)
[2017-07-19] MEDS: FOLIC ACID 1 MG TAB PO SCH (08:29)
[2017-07-19] MEDS: CHOLECALCIFEROL (VIT D3) 1000 UNIT TAB PO SCH (08:29)
[2017-07-19] MEDS: DOCUSATE SODIUM 50 MG/SENNA 8.6 MG TAB PO SCH ×2 (08:29→21:35)
[2017-07-19] MEDS: MULTIVITAMINS/MINERALS THERAPEUTIC TAB PO SCH (08:29)
[2017-07-19] MEDS: POLYETHYLENE GLYCOL 17 GM PKG PO SCH (08:34)
[2017-07-19] MEDS: KETOROLAC TROMETHAMINE 30 MG/ML (IVP) VIAL IV PUSH SCH ×2 (08:37→16:32)
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
[2017-07-19] MEDS ORDERED: SODIUM CHLORID 0.9% 500 ML IV PRN (22:45)
[2017-07-19] MEDS ORDERED: LACTATED RINGER'S 1000 ML IV PRN (22:45)
[2017-07-19] MEDS ORDERED: CHLORHEXIDINE GLUCONATE 2 % 1 PACK (2 CLOTHS) TOPICAL PRN (22:45)
[2017-07-19] MEDS ORDERED: POVIDONE IODINE 5% (ANTISEPSIS KIT) 4 APPLICATIONS EACH NARE PRN (22:45)
[2017-07-20] VITALS (8 sets, daily range): BP systolic 122–158; BP diastolic 86–97; PULSE 78–104; RESP 18–20; TEMP 97.7–99; O2SAT 94–100
[2017-07-20] MEDS: KETOROLAC TROMETHAMINE 30 MG/ML (IVP) VIAL IV PUSH SCH
--- NOTE | 2017-07-20 07:25 | PD.ORT.PN ---
Subjective Subjective Remarks POD 3 s/p ORIF right tibial plateau s/p exfix left tibial plateau doing well. no changes Objective Vitals Vital Signs Date Time Temp Pulse Resp B/P (MAP) Pulse Ox O2 Delivery O2 Flow Rate FiO2 07/20/17 04:00 99.0 84 18 158/93 (114) 95 07/20/17 00:00 78 07/20/17 00:00 97.7 92 18 122/86 (98) 98 07/19/17 23:03 18 07/19/17 22:06 81 07/19/17 21:43 18 07/19/17 20:05 78 07/19/17 20:00 99.1 86 18 116/75 (89) 97 07/19/17 16:19 99.4 86 20 159/92 (114) 96 07/19/17 13:39 97 07/19/17 13:00 80 07/19/17 12:44 98.2 92 20 117/75 (89) 95 07/19/17 08:36 98.8 86 20 151/83 (105) 95 I/O 07/19/17 07/19/17 07/19/17 07/20/17 07/20/17 07/20/17 07:00 15:00 23:00 07:00 15:00 23:00 Intake Total 300 ml 480 ml 240 ml Output Total 2000 ml 400 ml 800 ml Balance -1700 ml 80 ml -560 ml Intake Oral 480 ml 240 ml IV Total 300 ml Output Urine Total 2000 ml 400 ml 800 ml # Voids 1 Result Diagram: 07/19/17 0443 Objective Remarks Left leg--external fixation in place, pin sites clean, mild to moderate swelling , neurovascularly intact left foot Right leg--clean dry dressing in place., Knee immobilizer on, neurovascularly intact right foot Assessment & Plan Assessment and Plan 1) Left tibia plateau fracture --Postoperative day #3 status post closed reduction external fixation Nonweightbearing swelling has improved plan for surgery today for ORIF and removal of exfix 2) Right tibial plateau fracture--postop day #3 status post open reduction internal fixation Nonweightbearing right leg CKS Physical therapy for passive range of motion no quad sets, leg lifts, active motion, strengthening Victorino Espinoza/[employer] PA Jul 20, 2017 07:25
[2017-07-20] MEDS: MORPHINE SULFATE 2 MG/ML INJ IV PUSH PRN ×2 (08:21→23:03)
[2017-07-20] MEDS: CALCIUM/VITAMIN D 250 MG/125 U TAB PO SCH ×3 (09:00→16:57)
[2017-07-20] MEDS: DOCUSATE SODIUM 50 MG/SENNA 8.6 MG TAB PO SCH ×2 (09:00→13:39)
[2017-07-20] MEDS ORDERED: GENTAMICIN SULFATE 80 MG/2 ML VIAL ONE (09:15)
[2017-07-20] MEDS ORDERED: HYDR-3583 PO (09:35)
[2017-07-20] MEDS ORDERED: VITA500012 PO (09:35)
[2017-07-20] MEDS ORDERED: CALCTAB19 PO (09:35)
[2017-07-20] MEDS ORDERED: XARE10TA PO (09:35)
[2017-07-20] MEDS ORDERED: ceFAZolin 2 GM PREMIX 50 ML ONE (09:40)
[2017-07-20] MEDS ORDERED: VANCOMYCIN HCL 1000 MG VIAL ONE (09:40)
[2017-07-20] MEDS ORDERED: ACETAMINOPHEN 1000 MG/100 ML 100 ML IV ONE (10:56)
[2017-07-20] MEDS ORDERED: Post-op Orders (for Pharmacy) XX ONE (11:30)
--- NOTE | 2017-07-20 11:34 | PD.OP ---
cc: Asaf Segura MD Operative Report Date of Surgery: Jul 20, 2017 Preoperative Diagnosis: Displaced left tibia bicondylar plateau fracture Postoperative Diagnosis: Procedure: Open reduction internal fixation left tibial plateau fracture, removal of external fixation Anesthesia: Gen. Surgeon: Asaf Segura [facility] Supervisor(s): MARIVEL Martin PA-C The surgical procedure was assisted by my physician power plant assistant. My P.A. presence was necessary throughout this case for the manipulation and positioning of the surgical extremity. My P.A. was assisting me throughout the duration of this procedure. The skill set of a physician power plant assistant was medically necessary to complete this procedure. During the surgical case the screening tech was working at the back table and the physician power plant assistant was directly assisting me. Operation and Findings: Plan of activity: Nonweightbearing bilateral lower extremities Implants used: ITS This patient was seen and evaluated preoperatively. Patient sustained an injury resulting bilateral tibial plateau fractures. Informed consent was obtained preoperatively after detailed discussion of the risks and benefits of surgery. Risk of surgery including bleeding, infection, nonunion, painful hardware, stiffness, loss of motion, arthritis, need for knee replacement, as well as medical complications including blood clots, stroke, heart attack, and were discussed. I also discussed the possibility of using allograft bone graft . Preoperatively the operative site was marked. Patient was brought to the operating room and placed on the operating room table. Intravenous sedation and general endotracheal anesthesia were administered. IV antibiotics were given and a time out procedure was preformed. Procedure began with removal of a portion of the external fixator. Clamps were loosened. Clamps and bars were now removed. The pins were left in place at this time. The operative leg was prepped with alcohol followed by Hibiclens and draped in the usual sterile fashion. Procedure began with a 4-inch curvilinear incision over the anterolateral knee. Subcutaneous tissue was treated with Bovie. Iliotibial band was split in line with fibers. The fracture was now visualized. There was a split in the articular surface. Traction was now applied. The articular surface split was reduced first. Fracture tenaculums were used to aid in reduction. There was minimal depression of the articular surface. K wires were used to hold provisional fixation. Articular surface reduced into excellent alignment. Next the tibial shaft was reduced up to the proximal segment of the tibia. K- wires were used for provisional fixation. Fluoroscopy revealed excellent alignment of fracture. A ITS proximal tibial plate was selected. The plate was provisionally held with K-wires. 4.5 cortical screws were used compress plate to bone distally, and a periarticular clamp was used to compress the medial and lateral tibial plateau fracture fragments together. Multiple locking screws were now placed proximally. Additional screws were placed in the shaft. K-wires were removed. Final fluoroscopy showed excellent alignment of fracture with well-placed hardware. The incision was thoroughly irrigated. Arthrotomy and iliotibial band closed with #1 Vicryl,. Subcutaneous tissues closed with 3-0 Vicryl and skin was closed with melody. Sterile dressings were applied. The patient was transferred to recovery in stable condition. Asaf Segura MD Jul 20, 2017 11:34
[2017-07-20] MEDS ORDERED: DO NOT ADM ANY ANTICOAGULANT DRUGS PRN (11:54)
[2017-07-20] MEDS ORDERED: MIDAZOLAM HCL 2 MG/2 ML VIAL IV ONE (12:00)
[2017-07-20] MEDS ORDERED: MORPHINE SULFATE 4 MG/ML INJ IV ONE (12:00)
[2017-07-20] MEDS ORDERED: PROPOFOL 200 MG/20 ML AMP IV ONE (12:00)
[2017-07-20] MEDS ORDERED: PHENYLEPH/NS 1000 MCG/10 ML SYR IV ONE (12:00)
[2017-07-20] MEDS ORDERED: ePHEDrine/NS 25 MG/5 ML SYRINGE IV ONE (12:00)
[2017-07-20] MEDS ORDERED: LACTATED RINGER'S 1000 ML INJ 1,000 ML IV ONE (12:00)
[2017-07-20] MEDS ORDERED: SUCCINYLCHOLINE CHLORIDE 100 MG/5 ML SYRINGE IV PUSH ONE (12:00)
[2017-07-20] MEDS ORDERED: LIDOCAINE HCL 1% PF 5 ML SYRINGE OTHER ONE (12:00)
[2017-07-20] MEDS ORDERED: ONDANSETRON HCL 4 MG/2 ML VIAL IV PUSH ONE (12:00)
[2017-07-20] MEDS ORDERED: DEXAMETHASONE SOD PHOS 4 MG/ML VIAL IV ONE (12:00)
[2017-07-20] MEDS ORDERED: ESMOLOL HCL 100 MG/10 ML VIAL IV ONE (12:00)
[2017-07-20] MEDS: LACTATED RINGER'S 1000 ML INJ 1,000 ML IV SCH (13:00)
[2017-07-20] MEDS: FOLIC ACID 1 MG TAB PO SCH (13:39)
[2017-07-20] MEDS: CHOLECALCIFEROL (VIT D3) 1000 UNIT TAB PO SCH (13:39)
[2017-07-20] MEDS: MULTIVITAMINS/MINERALS THERAPEUTIC TAB PO SCH (13:39)
[2017-07-20] MEDS: THIAMINE HCL 100 MG TAB PO SCH (13:39)
[2017-07-20] MEDS: ACETAMINOPHEN/HYDROcodone 325 MG/10 MG TAB PO PRN ×3 (13:40→21:59)
[2017-07-20] MEDS: POLYETHYLENE GLYCOL 17 GM PKG PO SCH (13:40)
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
[2017-07-20] MEDS: ceFAZolin 2 GM PREMIX 50 ML IV SCH (16:58)
[2017-07-20] MEDS: VANCOMYCIN INJ 1,000 MG in SODIUM CHLOR 0.9% 250 ML INJ 250 ML IV SCH (21:49)
--- NOTE | 2017-07-20 23:02 | RADRPT ---
EXAM DATE/TIME: 07/20/2017 11:13 [place] COMPARISON: No previous studies available for comparison. INDICATIONS : Left tibia fracture- ORIF. MEDICAL HISTORY : None. SURGICAL HISTORY : None. ENCOUNTER: Initial ACUITY: 1 day PAIN SCORE: Non-responsive. LOCATION: Left Tibia. FINDINGS: 5 intraoperative spot images of the left tibia. Lateral internal fixation plate with multiple transfi maxine screws identified extending from the proximal metaphysis to the mid shaft. Proximal tibia shaft fracture is identified. Alignment is near-anatomic. Proximal fibula fracture also noted. Osteoarthrit ic findings of the knee noted. CONCLUSION: Intraoperative images of internal fixation hardware across proximal tibia fracture. Armen Bates MD on July 20, 2017 at 22:57 Board Certified Radiologist. This report was verified electronically.
[2017-07-21] VITALS (10 sets, daily range): BP systolic 146–160; BP diastolic 81–99; PULSE 77–99; RESP 16–20; TEMP 96.9–99; O2SAT 94–98
[2017-07-21] MEDS: LACTATED RINGER'S 1000 ML INJ 1,000 ML IV SCH ×2 (01:30→13:39)
[2017-07-21] MEDS: ceFAZolin 2 GM PREMIX 50 ML IV SCH ×3 (02:21→17:16)
[2017-07-21] MEDS: ACETAMINOPHEN/HYDROcodone 325 MG/10 MG TAB PO PRN ×4 (04:03→22:47)
--- NOTE | 2017-07-21 07:27 | PD.ORT.PN ---
Subjective Subjective Remarks POD 4 s/p ORIF right tibial plateau POD 1 s/p ORIF left tibial plateau doing well. no changes Objective Vitals Vital Signs Date Time Temp Pulse Resp B/P (MAP) Pulse Ox O2 Delivery O2 Flow Rate FiO2 07/21/17 05:04 18 07/21/17 04:39 98.5 96 20 160/96 (117) 97 07/21/17 00:18 98.3 90 19 154/89 (110) 95 07/21/17 00:00 80 07/20/17 23:08 18 07/20/17 20:00 98.3 99 19 151/96 (114) 94 07/20/17 20:00 93 07/20/17 16:33 98.3 104 20 149/97 (114) 94 07/20/17 15:33 91 07/20/17 14:09 100 07/20/17 12:30 109 16 140/91 (107) 100 Room Air 07/20/17 12:15 104 16 144/92 (109) 100 Room Air 07/20/17 11:55 97.6 123 16 118/89 (99) 98 Nasal Cannula 4 07/20/17 08:24 98.8 83 20 143/88 (106) 98 I/O 07/20/17 07/20/17 07/20/17 07/21/17 07/21/17 07/21/17 07:00 15:00 23:00 07:00 15:00 23:00 Intake Total 240 ml 1440 ml 1250 ml Output Total 800 ml 250 ml 250 ml 1400 ml 700 ml Balance -560 ml 1190 ml -250 ml -150 ml -700 ml Intake Oral 240 ml 240 ml IV Total 1250 ml Other 1200 ml Output Urine Total 800 ml 200 ml 250 ml 1400 ml 700 ml Estimated Blood Loss 50 ml # Voids 1 Result Diagram: 07/19/17 0443 Objective Remarks Left leg--mild bloody drainage on bandage. otherwise clean and dry. +CKS. full sensation distally. stiffness to dorsiflexion. neg niki Right leg--clean dry dressing in place., Knee immobilizer on, neurovascularly intact right foot Assessment & Plan Assessment and Plan 1) Left tibia plateau fracture s/p ORIF - POD 1 -NWB -PROM of knee 0-90 -no quad sets, leg lifts, strengthening -daily dressing changes POD 2 -keep clean and dry 2) Right tibial plateau fracture s/p ORIF - POD 4 Nonweightbearing right leg CKS Physical therapy for passive range of motion no quad sets, leg lifts, active motion, strengthening Victorino Espinoza/First Liliana LYNN Jul 21, 2017 07:27
[2017-07-21 08:23] LABS: HEMATOCRIT 29.5 % (39.0-51.0); HEMOGLOBIN 9.7 GM/DL (13.0-17.0)
[2017-07-21] MEDS: MULTIVITAMINS/MINERALS THERAPEUTIC TAB PO SCH (08:54)
[2017-07-21] MEDS: DOCUSATE SODIUM 50 MG/SENNA 8.6 MG TAB PO SCH ×2 (08:54→22:46)
[2017-07-21] MEDS: FOLIC ACID 1 MG TAB PO SCH (08:54)
[2017-07-21] MEDS: POLYETHYLENE GLYCOL 17 GM PKG PO SCH (08:55)
[2017-07-21] MEDS: CHOLECALCIFEROL (VIT D3) 1000 UNIT TAB PO SCH (08:55)
[2017-07-21] MEDS: THIAMINE HCL 100 MG TAB PO SCH (08:55)
[2017-07-21] MEDS: CALCIUM/VITAMIN D 250 MG/125 U TAB PO SCH ×3 (08:55→17:16)
[2017-07-21] MEDS: VANCOMYCIN INJ 1,000 MG in SODIUM CHLOR 0.9% 250 ML INJ 250 ML IV SCH ×2 (09:54→22:48)
[2017-07-21] MEDS: ENOXAPARIN SODIUM 30 MG/0.3 ML SYRINGE SQ SCH ×2 (10:00→22:46)
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
[2017-07-21] MEDS ORDERED: WHEEMIS3 (13:14)
[2017-07-22] VITALS (10 sets, daily range): BP systolic 112–156; BP diastolic 65–89; PULSE 82–105; RESP 18–20; TEMP 97.9–99.6; O2SAT 95–97
[2017-07-22] MEDS: LACTATED RINGER'S 1000 ML INJ 1,000 ML IV SCH (02:30)
[2017-07-22] MEDS: ceFAZolin 2 GM PREMIX 50 ML IV SCH ×2 (03:37→08:58)
[2017-07-22] MEDS: ACETAMINOPHEN/HYDROcodone 325 MG/10 MG TAB PO PRN ×3 (08:43→21:23)
[2017-07-22] MEDS: fentaNYL 50 MCG/HR PATCH T-DERMAL SCH (08:44)
[2017-07-22] MEDS: GABAPENTIN 300 MG CAP PO SCH ×3 (08:45→17:15)
[2017-07-22] MEDS: MULTIVITAMINS/MINERALS THERAPEUTIC TAB PO SCH (08:46)
[2017-07-22] MEDS: FOLIC ACID 1 MG TAB PO SCH (08:46)
[2017-07-22] MEDS: CALCIUM/VITAMIN D 250 MG/125 U TAB PO SCH ×3 (08:46→17:15)
[2017-07-22] MEDS: DOCUSATE SODIUM 50 MG/SENNA 8.6 MG TAB PO SCH ×2 (08:47→21:23)
[2017-07-22] MEDS: THIAMINE HCL 100 MG TAB PO SCH (08:47)
[2017-07-22] MEDS: CHOLECALCIFEROL (VIT D3) 1000 UNIT TAB PO SCH (08:47)
[2017-07-22] MEDS: POLYETHYLENE GLYCOL 17 GM PKG PO SCH (08:48)
--- NOTE | 2017-07-22 08:51 | PD.ORT.PN ---
Subjective Subjective Remarks POD 5 s/p ORIF right tibial plateau POD 2 s/p ORIF left tibial plateau doing well. no changes Objective Vitals Vital Signs Date Time Temp Pulse Resp B/P (MAP) Pulse Ox O2 Delivery O2 Flow Rate FiO2 07/22/17 08:00 97.9 87 18 139/89 (106) 97 07/22/17 04:00 98.9 92 18 128/84 (99) 97 07/22/17 02:56 82 07/22/17 00:00 98.5 86 20 140/65 (90) 95 07/21/17 20:00 99.0 87 19 148/99 (115) 98 07/21/17 18:18 79 07/21/17 16:00 96.9 81 18 152/93 (112) 96 07/21/17 13:32 99 07/21/17 12:00 98.5 90 18 146/98 (114) 95 I/O 07/21/17 07/21/17 07/21/17 07/22/17 07/22/17 07/22/17 07:00 15:00 23:00 07:00 15:00 23:00 Intake Total 1250 ml 300 ml 300 ml Output Total 1400 ml 1450 ml 600 ml 750 ml Balance -150 ml -1150 ml -600 ml -450 ml IV Total 1250 ml 300 ml 300 ml Output Urine Total 1400 ml 1450 ml 600 ml 750 ml # Bowel Movements 1 0 Result Diagram: 07/21/17 0710 Objective Remarks Left leg--mild bloody drainage on bandage. otherwise clean and dry. +CKS. full sensation distally. stiffness to dorsiflexion. neg niki Right leg--clean dry dressing in place., Knee immobilizer on, neurovascularly intact right foot Assessment & Plan Assessment and Plan 1) Left tibia plateau fracture s/p ORIF - POD 2 -NWB -PROM of knee 0-90 -no quad sets, leg lifts, strengthening -daily dressing changes POD 2 -keep clean and dry 2) Right tibial plateau fracture s/p ORIF - POD 5 Nonweightbearing right leg CKS Physical therapy for passive range of motion no quad sets, leg lifts, active motion, strengthening Lovenox -CM for rehab placement Victorino Jones/Functional Director PA Jul 22, 2017 08:51
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
[2017-07-22] MEDS: ENOXAPARIN SODIUM 30 MG/0.3 ML SYRINGE SQ SCH ×2 (12:30→21:24)
[2017-07-22] MEDS: BACITRACIN TOP OINT 15 GM TUBE TOP SCH ×2 (12:30→21:24)
[2017-07-22] MEDS: METHOCARBAMOL 500 MG TAB PO SCH ×2 (15:02→21:23)
[2017-07-23] VITALS (8 sets, daily range): BP systolic 109–136; BP diastolic 76–86; PULSE 84–102; RESP 17–18; TEMP 98.4–99.4; O2SAT 94–100
[2017-07-23] MEDS: METHOCARBAMOL 500 MG TAB PO SCH ×3 (05:40→21:32)
[2017-07-23] MEDS: THIAMINE HCL 100 MG TAB PO SCH (09:24)
[2017-07-23] MEDS: CHOLECALCIFEROL (VIT D3) 1000 UNIT TAB PO SCH (09:24)
[2017-07-23] MEDS: ENOXAPARIN SODIUM 30 MG/0.3 ML SYRINGE SQ SCH ×2 (09:24→23:10)
[2017-07-23] MEDS: CALCIUM/VITAMIN D 250 MG/125 U TAB PO SCH ×3 (09:24→18:18)
[2017-07-23] MEDS: FOLIC ACID 1 MG TAB PO SCH (09:24)
[2017-07-23] MEDS: MULTIVITAMINS/MINERALS THERAPEUTIC TAB PO SCH (09:24)
[2017-07-23] MEDS: POLYETHYLENE GLYCOL 17 GM PKG PO SCH (09:25)
[2017-07-23] MEDS: DOCUSATE SODIUM 50 MG/SENNA 8.6 MG TAB PO SCH ×2 (09:25→21:00)
[2017-07-23] MEDS: GABAPENTIN 300 MG CAP PO SCH ×3 (09:25→18:18)
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
[2017-07-23] MEDS: BACITRACIN TOP OINT 15 GM TUBE TOP SCH ×2 (17:30→21:32)
[2017-07-23] MEDS: ACETAMINOPHEN/HYDROcodone 325 MG/10 MG TAB PO PRN (21:32)
[2017-07-24] VITALS: BP 119/77; PULSE 90; RESP 18; TEMP 98.5; O2SAT 95
[2017-07-24 04:00] VITALS: BP 128/77; PULSE 88; RESP 18; TEMP 98.1; O2SAT 95
[2017-07-24 04:43] LABS: AUTOMATED NEUTROPHIL # 5.4 TH/MM3 (1.8-7.7); BASOPHIL # 0.1 TH/MM3 (0-0.2); BASOPHIL % 1.1 % (0.0-2.0); EOSINOPHIL # 0.3 TH/MM3 (0-0.4); EOSINOPHIL % 3.2 % (0.0-4.0); HEMATOCRIT 32.4 % (39.0-51.0); HEMOGLOBIN 10.7 GM/DL (13.0-17.0); LYMPH % 26.7 % (9.0-44.0); LYMPHOCYTE # 2.6 TH/MM3 (1.0-4.8); MEAN CELL VOLUME 93.2 FL (80.0-100.0); MEAN CORPUSCULAR HEMOGLOBIN 30.7 PG (27.0-34.0); MEAN CORPUSCULAR HGB CONC 32.9 % (32.0-36.0); MEAN PLATELET VOLUME 8.4 FL (7.0-11.0); MONO % 13.8 % (0.0-8.0); MONOCYTE # 1.3 TH/MM3 (0-0.9); NEUT % 55.2 % (16.0-70.0); PLATELET COUNT 380 TH/MM3 (150-450); RED BLOOD COUNT 3.48 MIL/MM3 (4.50-5.90); RED CELL DISTRIBUTION WIDTH 14.2 % (11.6-17.2); WHITE BLOOD COUNT 9.7 TH/MM3 (4.0-11.0)
[2017-07-24 05:10] LABS: BICARBONATE 32.3 MEQ/L (21.0-32.0); CALCIUM 9.4 MG/DL (8.5-10.1); CREATININE 0.82 MG/DL (0.60-1.30)
[2017-07-24] MEDS: METHOCARBAMOL 500 MG TAB PO SCH ×3 (05:49→22:12)
[2017-07-24] MEDS: ACETAMINOPHEN/HYDROcodone 325 MG/10 MG TAB PO PRN ×3 (05:49→22:11)
[2017-07-24 08:13] VITALS: BP 120/78; PULSE 76; RESP 18; TEMP 98.2; O2SAT 97
[2017-07-24] MEDS: THIAMINE HCL 100 MG TAB PO SCH (09:03)
[2017-07-24] MEDS: CHOLECALCIFEROL (VIT D3) 1000 UNIT TAB PO SCH (09:03)
[2017-07-24] MEDS: CALCIUM/VITAMIN D 250 MG/125 U TAB PO SCH ×3 (09:03→17:12)
[2017-07-24] MEDS: DOCUSATE SODIUM 50 MG/SENNA 8.6 MG TAB PO SCH ×2 (09:03→21:00)
[2017-07-24] MEDS: POLYETHYLENE GLYCOL 17 GM PKG PO SCH (09:03)
[2017-07-24] MEDS: GABAPENTIN 300 MG CAP PO SCH ×3 (09:03→17:12)
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
[2017-07-24] MEDS: BACITRACIN TOP OINT 15 GM TUBE TOP SCH ×2 (12:54→22:12)
[2017-07-24] MEDS: ENOXAPARIN SODIUM 30 MG/0.3 ML SYRINGE SQ SCH ×2 (12:54→22:12)
[2017-07-24] MEDS: ERGOCALCIFEROL (VIT D2) 50,000 UNIT CAP PO SCH (12:55)
[2017-07-24 13:10] VITALS: BP 122/80; PULSE 108; RESP 18; TEMP 97.4; O2SAT 95
[2017-07-24 16:14] VITALS: BP 97/77; PULSE 101; RESP 17; TEMP 98.8; O2SAT 96
[2017-07-24 20:00] VITALS: BP 151/63; PULSE 98; RESP 20; TEMP 98.4; O2SAT 99
[2017-07-25] VITALS: BP 117/80; PULSE 83; RESP 20; TEMP 98.3; O2SAT 98
[2017-07-25] MEDS: ACETAMINOPHEN/HYDROcodone 325 MG/10 MG TAB PO PRN ×2 (03:19→22:41)
[2017-07-25 04:00] VITALS: BP 123/84; PULSE 92; RESP 20; TEMP 98.4; O2SAT 98
[2017-07-25] MEDS: METHOCARBAMOL 500 MG TAB PO SCH ×3 (05:51→22:41)
[2017-07-25 08:45] VITALS: BP 127/82; PULSE 83; RESP 17; TEMP 97.9; O2SAT 94
[2017-07-25] MEDS: POLYETHYLENE GLYCOL 17 GM PKG PO SCH (09:32)
[2017-07-25] MEDS: DOCUSATE SODIUM 50 MG/SENNA 8.6 MG TAB PO SCH ×2 (09:32→21:00)
[2017-07-25] MEDS: THIAMINE HCL 100 MG TAB PO SCH (09:32)
[2017-07-25] MEDS: GABAPENTIN 300 MG CAP PO SCH ×3 (09:32→17:54)
[2017-07-25] MEDS: CALCIUM/VITAMIN D 250 MG/125 U TAB PO SCH ×3 (09:33→17:54)
[2017-07-25] MEDS: fentaNYL 50 MCG/HR PATCH T-DERMAL SCH (09:33)
[2017-07-25] MEDS: CHOLECALCIFEROL (VIT D3) 1000 UNIT TAB PO SCH (09:33)
[2017-07-25] MEDS: BACITRACIN TOP OINT 15 GM TUBE TOP SCH ×2 (09:34→22:47)
--- NOTE | 2017-07-25 09:48 | PD.ORT.PN ---
Subjective Subjective Remarks Resting comfortably with no new complaints. Bilateral knee immobilizers in place. Objective Vitals Vital Signs Date Time Temp Pulse Resp B/P (MAP) Pulse Ox O2 Delivery O2 Flow Rate FiO2 07/25/17 04:00 98.4 92 20 123/84 (97) 98 07/25/17 00:00 98.3 83 20 117/80 (92) 98 07/24/17 20:00 98.4 98 20 151/63 (92) 99 07/24/17 16:14 98.8 101 17 97/77 (84) 96 07/24/17 13:10 97.4 108 18 122/80 (94) 95 I/O 07/24/17 07/24/17 07/24/17 07/25/17 07/25/17 07/25/17 07:00 15:00 23:00 07:00 15:00 23:00 Intake Total 1280 ml 820 ml Output Total 875 ml 200 ml 1850 ml 1700 ml Balance -875 ml -200 ml -570 ml -880 ml Intake Oral 1280 ml 820 ml Output Urine Total 875 ml 200 ml 1850 ml 1700 ml # Bowel Movements 0 0 Result Diagram: 07/24/17 0416 07/24/17 0416 Objective Remarks Left leg--mild bloody drainage on bandage. otherwise clean and dry. +CKS. full sensation distally. stiffness to dorsiflexion. neg niki Right leg--clean dry dressing in place., Knee immobilizer on, neurovascularly intact right foot Assessment & Plan Assessment and Plan 1) Left tibia plateau fracture s/p ORIF - POD 5 -NWB -PROM of knee 0-90 -no quad sets, leg lifts, strengthening -daily dressing changes POD 2 -keep clean and dry 2) Right tibial plateau fracture s/p ORIF - POD 8 Nonweightbearing right leg CKS Physical therapy for passive range of motion no quad sets, leg lifts, active motion, strengthening [facility] Orthopedic clear for discharge -CM for rehab placement Follow-up with Dr. Segura or [facility] in 2 weeks Juan Manuel Silva Jr. Jul 25, 2017 09:47
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
[2017-07-25 12:28] VITALS: BP 131/95; PULSE 90; RESP 18; TEMP 99.4; O2SAT 100
[2017-07-25] MEDS: ENOXAPARIN SODIUM 30 MG/0.3 ML SYRINGE SQ SCH ×2 (13:25→22:47)
[2017-07-25 16:21] VITALS: BP 117/87; PULSE 93; RESP 17; TEMP 98.3; O2SAT 94
[2017-07-25 21:25] VITALS: BP 131/88; PULSE 87; RESP 16; TEMP 98.3; O2SAT 98
[2017-07-26 00:37] VITALS: BP 131/82; PULSE 90; RESP 18; TEMP 98.9; O2SAT 95
[2017-07-26 05:30] VITALS: BP 137/90; PULSE 85; RESP 18; TEMP 98.7; O2SAT 97
[2017-07-26] MEDS: ACETAMINOPHEN/HYDROcodone 325 MG/10 MG TAB PO PRN ×4 (06:05→20:58)
[2017-07-26] MEDS: METHOCARBAMOL 500 MG TAB PO SCH ×3 (06:05→20:59)
[2017-07-26 08:10] VITALS: BP 127/85; PULSE 89; RESP 20; TEMP 98.1; O2SAT 98
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
[2017-07-26] MEDS: POLYETHYLENE GLYCOL 17 GM PKG PO SCH (09:45)
[2017-07-26] MEDS: GABAPENTIN 300 MG CAP PO SCH ×3 (09:45→17:35)
[2017-07-26] MEDS: THIAMINE HCL 100 MG TAB PO SCH (09:45)
[2017-07-26] MEDS: CALCIUM/VITAMIN D 250 MG/125 U TAB PO SCH ×3 (09:45→17:35)
[2017-07-26] MEDS: CHOLECALCIFEROL (VIT D3) 1000 UNIT TAB PO SCH (09:47)
[2017-07-26] MEDS: DOCUSATE SODIUM 50 MG/SENNA 8.6 MG TAB PO SCH ×2 (09:47→20:57)
[2017-07-26] MEDS: BACITRACIN TOP OINT 15 GM TUBE TOP SCH ×2 (09:47→20:58)
[2017-07-26] MEDS: ENOXAPARIN SODIUM 30 MG/0.3 ML SYRINGE SQ SCH ×2 (11:29→23:32)
[2017-07-26 12:43] VITALS: BP 127/82; PULSE 89; RESP 20; TEMP 97.4; O2SAT 95
[2017-07-26 15:48] VITALS: BP 119/78; PULSE 91; RESP 20; TEMP 98.4; O2SAT 95
[2017-07-26 21:36] VITALS: BP 119/76; PULSE 88; RESP 16; TEMP 98.9; O2SAT 97
[2017-07-27 00:12] VITALS: BP 114/76; PULSE 79; RESP 16; TEMP 98.3; O2SAT 98
[2017-07-27] MEDS: METHOCARBAMOL 500 MG TAB PO SCH ×3 (05:44→21:16)
[2017-07-27 06:10] VITALS: BP 126/80; PULSE 74; RESP 16; TEMP 98.3; O2SAT 99
[2017-07-27 07:49] VITALS: BP 127/83; PULSE 80; RESP 20; TEMP 98.6; O2SAT 97
[2017-07-27] MEDS: THIAMINE HCL 100 MG TAB PO SCH (09:43)
[2017-07-27] MEDS: POLYETHYLENE GLYCOL 17 GM PKG PO SCH (09:43)
[2017-07-27] MEDS: CALCIUM/VITAMIN D 250 MG/125 U TAB PO SCH ×3 (09:44→18:08)
[2017-07-27] MEDS: ACETAMINOPHEN/HYDROcodone 325 MG/10 MG TAB PO PRN ×4 (09:44→21:17)
[2017-07-27] MEDS: CHOLECALCIFEROL (VIT D3) 1000 UNIT TAB PO SCH (09:44)
[2017-07-27] MEDS: GABAPENTIN 300 MG CAP PO SCH ×3 (09:44→18:08)
[2017-07-27] MEDS: DOCUSATE SODIUM 50 MG/SENNA 8.6 MG TAB PO SCH ×2 (09:44→21:15)
[2017-07-27] MEDS: BACITRACIN TOP OINT 15 GM TUBE TOP SCH ×2 (09:45→21:16)
[2017-07-27] MEDS: ENOXAPARIN SODIUM 30 MG/0.3 ML SYRINGE SQ SCH ×2 (10:48→22:32)
[2017-07-27 11:41] VITALS: BP 136/92; PULSE 89; RESP 20; TEMP 98.8; O2SAT 100
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
[2017-07-27 15:47] VITALS: BP 127/92; PULSE 77; RESP 20; TEMP 98.5; O2SAT 98
[2017-07-27 20:00] VITALS: BP 125/78; PULSE 75; RESP 18; TEMP 98.6; O2SAT 100
[2017-07-28] VITALS (7 sets, daily range): BP systolic 121–137; BP diastolic 78–87; PULSE 56–87; RESP 18; TEMP 98.1–98.8; O2SAT 96–99
[2017-07-28] MEDS: METHOCARBAMOL 500 MG TAB PO SCH ×3 (06:08→21:07)
[2017-07-28] MEDS: ACETAMINOPHEN/HYDROcodone 325 MG/10 MG TAB PO PRN ×2 (06:08→21:07)
[2017-07-28] MEDS: DOCUSATE SODIUM 50 MG/SENNA 8.6 MG TAB PO SCH ×2 (07:44→21:07)
[2017-07-28] MEDS: CALCIUM/VITAMIN D 250 MG/125 U TAB PO SCH ×3 (07:44→16:24)
[2017-07-28] MEDS: THIAMINE HCL 100 MG TAB PO SCH (07:44)
[2017-07-28] MEDS: CHOLECALCIFEROL (VIT D3) 1000 UNIT TAB PO SCH (07:44)
[2017-07-28] MEDS: GABAPENTIN 300 MG CAP PO SCH ×3 (07:44→16:24)
[2017-07-28] MEDS: POLYETHYLENE GLYCOL 17 GM PKG PO SCH (07:44)
[2017-07-28] MEDS: fentaNYL 50 MCG/HR PATCH T-DERMAL SCH (07:45)
[2017-07-28] MEDS: MAGNESIUM HYDROXIDE SUSP 30 ML CUP PO SCH ×2 (08:02→21:07)
[2017-07-28] MEDS: BACITRACIN TOP OINT 15 GM TUBE TOP SCH ×2 (08:03→21:07)
[2017-07-28] MEDS: ENOXAPARIN SODIUM 30 MG/0.3 ML SYRINGE SQ SCH ×2 (10:43→23:14)
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
[2017-07-29 04:00] VITALS: BP 125/75; PULSE 77; RESP 18; TEMP 98.1; O2SAT 98
[2017-07-29] MEDS: METHOCARBAMOL 500 MG TAB PO SCH ×3 (06:02→21:05)
[2017-07-29] MEDS: ACETAMINOPHEN/HYDROcodone 325 MG/10 MG TAB PO PRN ×4 (06:03→23:31)
[2017-07-29 08:14] VITALS: BP 118/79; PULSE 75; RESP 18; TEMP 98.3; O2SAT 97
[2017-07-29] MEDS: CALCIUM/VITAMIN D 250 MG/125 U TAB PO SCH ×3 (08:48→17:47)
[2017-07-29] MEDS: MAGNESIUM HYDROXIDE SUSP 30 ML CUP PO SCH ×2 (08:48→21:07)
[2017-07-29] MEDS: GABAPENTIN 300 MG CAP PO SCH ×3 (08:48→17:47)
[2017-07-29] MEDS: DOCUSATE SODIUM 50 MG/SENNA 8.6 MG TAB PO SCH ×2 (08:48→21:05)
[2017-07-29] MEDS: CHOLECALCIFEROL (VIT D3) 1000 UNIT TAB PO SCH (08:48)
[2017-07-29] MEDS: THIAMINE HCL 100 MG TAB PO SCH (08:48)
[2017-07-29] MEDS: POLYETHYLENE GLYCOL 17 GM PKG PO SCH (08:50)
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
[2017-07-29] MEDS: fentaNYL 25 MCG/HR PATCH T-DERMAL SCH (13:05)
[2017-07-29] MEDS: ENOXAPARIN SODIUM 30 MG/0.3 ML SYRINGE SQ SCH ×2 (13:06→23:28)
[2017-07-29 15:54] VITALS: BP 123/73; PULSE 80; RESP 18; TEMP 98.5; O2SAT 97
[2017-07-29] MEDS: BACITRACIN TOP OINT 15 GM TUBE TOP SCH ×2 (17:48→21:05)
[2017-07-29 20:00] VITALS: BP 115/82; PULSE 87; RESP 20; TEMP 98.5; O2SAT 99
[2017-07-30 04:00] VITALS: BP 113/76; PULSE 75; RESP 18; TEMP 97.8; O2SAT 99
[2017-07-30] MEDS: METHOCARBAMOL 500 MG TAB PO SCH ×3 (05:38→23:25)
[2017-07-30 08:00] VITALS: BP 114/71; PULSE 69; RESP 18; TEMP 98; O2SAT 97
[2017-07-30] MEDS: DOCUSATE SODIUM 50 MG/SENNA 8.6 MG TAB PO SCH ×2 (09:11→23:25)
[2017-07-30] MEDS: CHOLECALCIFEROL (VIT D3) 1000 UNIT TAB PO SCH (09:11)
[2017-07-30] MEDS: ACETAMINOPHEN/HYDROcodone 325 MG/10 MG TAB PO PRN ×3 (09:11→23:26)
[2017-07-30] MEDS: POLYETHYLENE GLYCOL 17 GM PKG PO SCH (09:11)
[2017-07-30] MEDS: GABAPENTIN 300 MG CAP PO SCH ×3 (09:11→17:43)
[2017-07-30] MEDS: CALCIUM/VITAMIN D 250 MG/125 U TAB PO SCH ×3 (09:11→17:43)
[2017-07-30] MEDS: THIAMINE HCL 100 MG TAB PO SCH (09:11)
[2017-07-30] MEDS: BACITRACIN TOP OINT 15 GM TUBE TOP SCH ×2 (09:12→21:00)
[2017-07-30] MEDS: MAGNESIUM HYDROXIDE SUSP 30 ML CUP PO SCH ×2 (09:12→23:25)
[2017-07-30] MEDS: ENOXAPARIN SODIUM 30 MG/0.3 ML SYRINGE SQ SCH ×2 (10:02→23:28)
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
[2017-07-30 12:00] VITALS: BP 126/76; PULSE 84; RESP 17; TEMP 97.9; O2SAT 98
[2017-07-30 16:00] VITALS: BP 122/83; PULSE 77; RESP 17; TEMP 98.3; O2SAT 98
[2017-07-30 20:51] VITALS: BP 118/79; PULSE 73; RESP 18; TEMP 98.1; O2SAT 97
[2017-07-31 00:45] VITALS: BP 129/63; PULSE 75; RESP 18; TEMP 98.3; O2SAT 98
[2017-07-31 04:54] LABS: AUTOMATED NEUTROPHIL # 3.7 TH/MM3 (1.8-7.7); BASOPHIL # 0.1 TH/MM3 (0-0.2); EOSINOPHIL # 0.3 TH/MM3 (0-0.4); EOSINOPHIL % 3.5 % (0.0-4.0); HEMATOCRIT 32.8 % (39.0-51.0); HEMOGLOBIN 10.6 GM/DL (13.0-17.0); LYMPH % 34.5 % (9.0-44.0); LYMPHOCYTE # 2.6 TH/MM3 (1.0-4.8); MEAN CELL VOLUME 92.8 FL (80.0-100.0); MEAN CORPUSCULAR HEMOGLOBIN 29.9 PG (27.0-34.0); MEAN CORPUSCULAR HGB CONC 32.3 % (32.0-36.0); MEAN PLATELET VOLUME 8.8 FL (7.0-11.0); MONO % 10.9 % (0.0-8.0); MONOCYTE # 0.8 TH/MM3 (0-0.9); NEUT % 50.1 % (16.0-70.0); PLATELET COUNT 433 TH/MM3 (150-450); RED BLOOD COUNT 3.54 MIL/MM3 (4.50-5.90); RED CELL DISTRIBUTION WIDTH 14.4 % (11.6-17.2); WHITE BLOOD COUNT 7.4 TH/MM3 (4.0-11.0)
[2017-07-31 05:07] LABS: BICARBONATE 29.6 MEQ/L (21.0-32.0); CALCIUM 9.1 MG/DL (8.5-10.1); CREATININE 0.84 MG/DL (0.60-1.30)
[2017-07-31 05:29] VITALS: BP 121/77; PULSE 77; RESP 18; TEMP 97.7; O2SAT 98
[2017-07-31] MEDS: METHOCARBAMOL 500 MG TAB PO SCH (06:07)
[2017-07-31] MEDS: ACETAMINOPHEN/HYDROcodone 325 MG/10 MG TAB PO PRN (06:08)
[2017-07-31 08:00] VITALS: BP 125/76; PULSE 75; RESP 20; TEMP 98.4; O2SAT 96
[2017-07-31] MEDS: POLYETHYLENE GLYCOL 17 GM PKG PO SCH (08:32)
[2017-07-31] MEDS: MAGNESIUM HYDROXIDE SUSP 30 ML CUP PO SCH ×2 (08:32→21:00)
[2017-07-31] MEDS: DOCUSATE SODIUM 50 MG/SENNA 8.6 MG TAB PO SCH ×2 (08:32→21:00)
[2017-07-31] MEDS: GABAPENTIN 300 MG CAP PO SCH ×3 (08:32→19:01)
[2017-07-31] MEDS: THIAMINE HCL 100 MG TAB PO SCH (08:32)
[2017-07-31] MEDS: CHOLECALCIFEROL (VIT D3) 1000 UNIT TAB PO SCH (08:33)
[2017-07-31] MEDS: CALCIUM/VITAMIN D 250 MG/125 U TAB PO SCH ×3 (08:33→19:00)
[2017-07-31] MEDS: BACITRACIN TOP OINT 15 GM TUBE TOP SCH ×2 (08:34→21:58)
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
[2017-07-31 12:13] VITALS: BP 114/75; PULSE 79; RESP 20; TEMP 98.2; O2SAT 98
[2017-07-31] MEDS ORDERED: ACETAMINOPHEN/HYDROcodone 325 MG/5 MG TAB PO PRN (12:15)
[2017-07-31] MEDS: ACETAMINOPHEN/HYDROcodone 325 MG/7.5 MG TAB PO PRN ×2 (12:23→19:01)
[2017-07-31] MEDS: ENOXAPARIN SODIUM 30 MG/0.3 ML SYRINGE SQ SCH ×2 (12:24→21:58)
[2017-07-31] MEDS: ERGOCALCIFEROL (VIT D2) 50,000 UNIT CAP PO SCH (12:24)
[2017-07-31 16:06] VITALS: BP 123/74; PULSE 71; RESP 20; TEMP 98.5; O2SAT 98
[2017-07-31 20:31] VITALS: BP 134/72; PULSE 77; RESP 16; TEMP 98.5; O2SAT 98
[2017-08-01 00:45] VITALS: BP 123/75; PULSE 82; RESP 16; TEMP 97.6; O2SAT 99
[2017-08-01 05:00] VITALS: BP 130/86; PULSE 75; RESP 17; TEMP 98; O2SAT 96
[2017-08-01] MEDS: POLYETHYLENE GLYCOL 17 GM PKG PO SCH (08:23)
[2017-08-01] MEDS: DOCUSATE SODIUM 50 MG/SENNA 8.6 MG TAB PO SCH ×2 (08:23→20:59)
[2017-08-01] MEDS: MAGNESIUM HYDROXIDE SUSP 30 ML CUP PO SCH ×2 (08:23→20:59)
[2017-08-01] MEDS: GABAPENTIN 300 MG CAP PO SCH ×3 (08:24→17:00)
[2017-08-01] MEDS: CALCIUM/VITAMIN D 250 MG/125 U TAB PO SCH ×3 (08:24→17:00)
[2017-08-01] MEDS: CHOLECALCIFEROL (VIT D3) 1000 UNIT TAB PO SCH (08:24)
[2017-08-01] MEDS: THIAMINE HCL 100 MG TAB PO SCH (08:24)
[2017-08-01] MEDS: fentaNYL 25 MCG/HR PATCH T-DERMAL SCH (08:25)
[2017-08-01] MEDS: BACITRACIN TOP OINT 15 GM TUBE TOP SCH ×2 (08:26→21:00)
[2017-08-01 08:27] VITALS: BP 132/89; PULSE 79; RESP 20; TEMP 98; O2SAT 94
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
[2017-08-01] MEDS: ENOXAPARIN SODIUM 30 MG/0.3 ML SYRINGE SQ SCH (11:16)
[2017-08-01 12:38] VITALS: BP 137/81; PULSE 97; RESP 20; TEMP 98.7; O2SAT 95
[2017-08-01 16:38] VITALS: BP 121/85; PULSE 88; RESP 20; TEMP 98.4; O2SAT 98
[2017-08-01 20:30] VITALS: BP 122/73; PULSE 84; RESP 17; TEMP 98.2; O2SAT 97
[2017-08-01] MEDS: ACETAMINOPHEN/HYDROcodone 325 MG/7.5 MG TAB PO PRN (21:00)
[2017-08-02] VITALS (7 sets, daily range): BP systolic 108–133; BP diastolic 73–88; PULSE 60–83; RESP 17–18; TEMP 97.5–98.5; O2SAT 97–99
[2017-08-02] MEDS: ENOXAPARIN SODIUM 30 MG/0.3 ML SYRINGE SQ SCH ×2 (00:24→11:27)
[2017-08-02] MEDS: MAGNESIUM HYDROXIDE SUSP 30 ML CUP PO SCH ×2 (09:00→20:26)
[2017-08-02] MEDS: THIAMINE HCL 100 MG TAB PO SCH (09:44)
[2017-08-02] MEDS: CALCIUM/VITAMIN D 250 MG/125 U TAB PO SCH ×3 (09:44→17:27)
[2017-08-02] MEDS: DOCUSATE SODIUM 50 MG/SENNA 8.6 MG TAB PO SCH ×2 (09:44→20:27)
[2017-08-02] MEDS: POLYETHYLENE GLYCOL 17 GM PKG PO SCH (09:44)
[2017-08-02] MEDS: GABAPENTIN 300 MG CAP PO SCH ×3 (09:44→17:27)
[2017-08-02] MEDS: CHOLECALCIFEROL (VIT D3) 1000 UNIT TAB PO SCH (09:44)
[2017-08-02] MEDS: BACITRACIN TOP OINT 15 GM TUBE TOP SCH ×2 (09:45→20:31)
[2017-08-02] MEDS: ACETAMINOPHEN/HYDROcodone 325 MG/7.5 MG TAB PO PRN (09:49)
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
[2017-08-02] MEDS ORDERED: MAGN30S PO (19:41)
[2017-08-03] VITALS (7 sets, daily range): BP systolic 106–128; BP diastolic 73–79; PULSE 66–83; RESP 17–18; TEMP 97.6–98.4; O2SAT 97–100
[2017-08-03] MEDS: ENOXAPARIN SODIUM 30 MG/0.3 ML SYRINGE SQ SCH ×3 (00:43→21:54)
[2017-08-03] MEDS: ACETAMINOPHEN/HYDROcodone 325 MG/7.5 MG TAB PO PRN ×4 (06:11→21:46)
[2017-08-03] MEDS: MAGNESIUM HYDROXIDE SUSP 30 ML CUP PO SCH ×2 (08:43→21:46)
[2017-08-03] MEDS: DOCUSATE SODIUM 50 MG/SENNA 8.6 MG TAB PO SCH ×2 (08:44→21:46)
[2017-08-03] MEDS: GABAPENTIN 300 MG CAP PO SCH ×3 (08:44→17:46)
[2017-08-03] MEDS: POLYETHYLENE GLYCOL 17 GM PKG PO SCH (08:44)
[2017-08-03] MEDS: CALCIUM/VITAMIN D 250 MG/125 U TAB PO SCH ×3 (08:44→17:46)
[2017-08-03] MEDS: THIAMINE HCL 100 MG TAB PO SCH (08:44)
[2017-08-03] MEDS: CHOLECALCIFEROL (VIT D3) 1000 UNIT TAB PO SCH (08:44)
[2017-08-03] MEDS: BACITRACIN TOP OINT 15 GM TUBE TOP SCH ×2 (08:49→21:54)
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
[2017-08-04 04:51] VITALS: BP 117/78; PULSE 74; RESP 18; TEMP 97.5; O2SAT 94
[2017-08-04 08:00] VITALS: BP 119/80; PULSE 78; RESP 18; TEMP 97.9; O2SAT 97
[2017-08-04] MEDS: MAGNESIUM HYDROXIDE SUSP 30 ML CUP PO SCH ×2 (09:00→20:39)
[2017-08-04] MEDS: POLYETHYLENE GLYCOL 17 GM PKG PO SCH (09:00)
[2017-08-04] MEDS: BACITRACIN TOP OINT 15 GM TUBE TOP SCH ×2 (09:00→20:41)
[2017-08-04] MEDS: CALCIUM/VITAMIN D 250 MG/125 U TAB PO SCH ×3 (09:12→17:26)
[2017-08-04] MEDS: DOCUSATE SODIUM 50 MG/SENNA 8.6 MG TAB PO SCH ×2 (09:12→20:39)
[2017-08-04] MEDS: THIAMINE HCL 100 MG TAB PO SCH (09:12)
[2017-08-04] MEDS: CHOLECALCIFEROL (VIT D3) 1000 UNIT TAB PO SCH (09:12)
[2017-08-04] MEDS: GABAPENTIN 300 MG CAP PO SCH ×3 (09:12→17:26)
[2017-08-04] MEDS: fentaNYL 25 MCG/HR PATCH T-DERMAL SCH (09:14)
[2017-08-04] MEDS: ENOXAPARIN SODIUM 30 MG/0.3 ML SYRINGE SQ SCH (10:36)
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
[2017-08-04 12:00] VITALS: BP 121/88; PULSE 71; RESP 18; TEMP 98.1; O2SAT 98
[2017-08-04 16:00] VITALS: BP 106/72; PULSE 81; RESP 18; TEMP 98.5; O2SAT 95
[2017-08-04 20:00] VITALS: BP 118/77; PULSE 78; RESP 18; TEMP 98.3; O2SAT 97
[2017-08-04] MEDS: ACETAMINOPHEN/HYDROcodone 325 MG/7.5 MG TAB PO PRN (20:38)
[2017-08-05] VITALS: BP 116/76; PULSE 76; RESP 18; TEMP 98.2; O2SAT 97
[2017-08-05] MEDS: ENOXAPARIN SODIUM 30 MG/0.3 ML SYRINGE SQ SCH ×3 (00:42→22:05)
[2017-08-05] MEDS: ACETAMINOPHEN/HYDROcodone 325 MG/7.5 MG TAB PO PRN (00:46)
[2017-08-05 04:00] VITALS: BP 120/76; PULSE 65; RESP 18; TEMP 98.1; O2SAT 98
[2017-08-05 08:00] VITALS: BP 136/81; PULSE 93; RESP 20; TEMP 98.1; O2SAT 98
[2017-08-05] MEDS: POLYETHYLENE GLYCOL 17 GM PKG PO SCH (09:00)
[2017-08-05] MEDS: DOCUSATE SODIUM 50 MG/SENNA 8.6 MG TAB PO SCH ×2 (09:00→22:04)
[2017-08-05] MEDS: MAGNESIUM HYDROXIDE SUSP 30 ML CUP PO SCH ×2 (09:00→22:05)
[2017-08-05] MEDS: CHOLECALCIFEROL (VIT D3) 1000 UNIT TAB PO SCH (09:04)
[2017-08-05] MEDS: GABAPENTIN 300 MG CAP PO SCH ×3 (09:04→17:25)
[2017-08-05] MEDS: THIAMINE HCL 100 MG TAB PO SCH (09:04)
[2017-08-05] MEDS: BACITRACIN TOP OINT 15 GM TUBE TOP SCH ×2 (09:04→22:05)
[2017-08-05] MEDS: CALCIUM/VITAMIN D 250 MG/125 U TAB PO SCH ×3 (09:04→17:25)
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
[2017-08-05 12:00] VITALS: BP 138/87; PULSE 87; RESP 20; TEMP 97.9; O2SAT 97
[2017-08-05 16:00] VITALS: BP 114/78; PULSE 81; RESP 20; TEMP 98.2; O2SAT 97
[2017-08-05 20:30] VITALS: BP 106/68; PULSE 72; RESP 18; TEMP 98.3; O2SAT 96
[2017-08-06 00:41] VITALS: BP 123/79; PULSE 73; RESP 19; TEMP 97.9; O2SAT 99
[2017-08-06 03:54] LABS: AUTOMATED NEUTROPHIL # 3.5 TH/MM3 (1.8-7.7); BASOPHIL # 0.1 TH/MM3 (0-0.2); BASOPHIL % 1.2 % (0.0-2.0); EOSINOPHIL # 0.2 TH/MM3 (0-0.4); EOSINOPHIL % 3.5 % (0.0-4.0); HEMATOCRIT 34.4 % (39.0-51.0); HEMOGLOBIN 11.5 GM/DL (13.0-17.0); LYMPH % 31.7 % (9.0-44.0); LYMPHOCYTE # 2.1 TH/MM3 (1.0-4.8); MEAN CELL VOLUME 90.9 FL (80.0-100.0); MEAN CORPUSCULAR HEMOGLOBIN 30.5 PG (27.0-34.0); MEAN CORPUSCULAR HGB CONC 33.5 % (32.0-36.0); MEAN PLATELET VOLUME 8.9 FL (7.0-11.0); MONO % 9.6 % (0.0-8.0); MONOCYTE # 0.6 TH/MM3 (0-0.9); PLATELET COUNT 413 TH/MM3 (150-450); RED BLOOD COUNT 3.78 MIL/MM3 (4.50-5.90); RED CELL DISTRIBUTION WIDTH 14.3 % (11.6-17.2); WHITE BLOOD COUNT 6.5 TH/MM3 (4.0-11.0)
[2017-08-06 04:17] LABS: BICARBONATE 29.8 MEQ/L (21.0-32.0); CALCIUM 9.2 MG/DL (8.5-10.1); CREATININE 0.8 MG/DL (0.60-1.30)
[2017-08-06 06:19] VITALS: BP 123/97; PULSE 65; RESP 20; TEMP 98.1; O2SAT 98
[2017-08-06 07:41] VITALS: BP 118/75; PULSE 73; RESP 19; TEMP 97.2; O2SAT 95
[2017-08-06] MEDS: CALCIUM/VITAMIN D 250 MG/125 U TAB PO SCH ×3 (08:13→17:48)
[2017-08-06] MEDS: MAGNESIUM HYDROXIDE SUSP 30 ML CUP PO SCH ×2 (08:13→21:00)
[2017-08-06] MEDS: CHOLECALCIFEROL (VIT D3) 1000 UNIT TAB PO SCH (08:13)
[2017-08-06] MEDS: THIAMINE HCL 100 MG TAB PO SCH (08:13)
[2017-08-06] MEDS: POLYETHYLENE GLYCOL 17 GM PKG PO SCH (08:13)
[2017-08-06] MEDS: GABAPENTIN 300 MG CAP PO SCH ×3 (08:14→17:48)
[2017-08-06] MEDS: ACETAMINOPHEN/HYDROcodone 325 MG/7.5 MG TAB PO PRN ×2 (08:14→23:09)
[2017-08-06] MEDS: DOCUSATE SODIUM 50 MG/SENNA 8.6 MG TAB PO SCH ×2 (08:14→21:07)
[2017-08-06] MEDS: BACITRACIN TOP OINT 15 GM TUBE TOP SCH ×2 (08:15→21:07)
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
[2017-08-06 11:39] VITALS: BP 114/83; PULSE 103; RESP 20; TEMP 98.2; O2SAT 99
[2017-08-06] MEDS: ENOXAPARIN SODIUM 30 MG/0.3 ML SYRINGE SQ SCH ×2 (11:58→23:11)
[2017-08-06 16:03] VITALS: BP 140/78; PULSE 90; RESP 20; TEMP 98.9; O2SAT 98
[2017-08-06 20:00] VITALS: BP 115/72; PULSE 88; RESP 18; TEMP 98.4; O2SAT 97
[2017-08-07] VITALS: BP 112/70; PULSE 82; RESP 18; TEMP 98.2; O2SAT 97
[2017-08-07 04:00] VITALS: BP 126/72; PULSE 74; RESP 18; TEMP 97.8; O2SAT 98
[2017-08-07 08:00] VITALS: BP 116/53; PULSE 72; RESP 18; TEMP 98.1; O2SAT 98
[2017-08-07] MEDS: BACITRACIN TOP OINT 15 GM TUBE TOP SCH ×2 (09:00→21:00)
[2017-08-07] MEDS: MAGNESIUM HYDROXIDE SUSP 30 ML CUP PO SCH ×2 (09:00→21:00)
[2017-08-07] MEDS: POLYETHYLENE GLYCOL 17 GM PKG PO SCH (09:00)
[2017-08-07] MEDS: CALCIUM/VITAMIN D 250 MG/125 U TAB PO SCH ×3 (10:00→16:55)
[2017-08-07] MEDS: CHOLECALCIFEROL (VIT D3) 1000 UNIT TAB PO SCH (10:00)
[2017-08-07] MEDS: fentaNYL 25 MCG/HR PATCH T-DERMAL SCH (10:01)
[2017-08-07] MEDS: ACETAMINOPHEN/HYDROcodone 325 MG/7.5 MG TAB PO PRN ×3 (10:01→23:03)
[2017-08-07] MEDS: THIAMINE HCL 100 MG TAB PO SCH (10:01)
[2017-08-07] MEDS: DOCUSATE SODIUM 50 MG/SENNA 8.6 MG TAB PO SCH ×2 (10:02→21:52)
[2017-08-07] MEDS: ENOXAPARIN SODIUM 30 MG/0.3 ML SYRINGE SQ SCH ×2 (10:02→21:52)
[2017-08-07] MEDS: GABAPENTIN 300 MG CAP PO SCH ×3 (10:02→16:55)
--- NOTE | 2017-08-07 11:44 | RADRPT ---
EXAM DATE/TIME: 08/07/2017 11:03 [facility] COMPARISON: KNEE RIGHT LTD (1 OR 2 VWS), July 16, 2017, 20:36. KNEE RIGHT LTD (1 OR 2 VWS), July 17, 2017, 14:16. INDICATIONS : Two week post-op evaluation of fracture and hardware placement. MEDICAL HISTORY : Smoker. SURGICAL HISTORY : ORIF of the right proximal tibia. ENCOUNTER: Subsequent ACUITY: 2 weeks PAIN SCORE: 5/10 LOCATION: Right patella. FINDINGS: Side plate and multiple screws traverse the proximal tibia with excellent anatomical alignment of the fracture fragments. Proximal fibular fracture is identified slightly displaced and nonhealed. CONCLUSION: Intact postsurgical changes for technique. Chris Acevedo MD on August 07, 2017 at 11:42 Board Certified Radiologist. This report was verified electronically.
--- NOTE | 2017-08-07 11:45 | RADRPT ---
EXAM DATE/TIME: 08/07/2017 11:07 [facility] COMPARISON: KNEE LEFT LTD (1 OR 2VWS), July 17, 2017, 14:16. INDICATIONS : Two week post-op evaluation of fracture and hardware placement. MEDICAL HISTORY : Smoker. SURGICAL HISTORY : ORIF of the left proximal tibia. ENCOUNTER: Subsequent ACUITY: 2 weeks PAIN SCORE: 6/10 LOCATION: Left patella. FINDINGS: Side plate and multiple screws traverse the proximal tibia with excellent anatomical alignment of the fracture fragments. Proximal fibular fracture is also aligned. Small joint effusion is seen. CONCLUSION: Intact postsurgical changes for technique. Chris Acevedo MD on August 07, 2017 at 11:42 Board Certified Radiologist. This report was verified electronically.
[2017-08-07 12:00] VITALS: BP 117/86; PULSE 76; RESP 18; TEMP 97.9; O2SAT 98
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
[2017-08-07] MEDS: ERGOCALCIFEROL (VIT D2) 50,000 UNIT CAP PO SCH (13:30)
[2017-08-07 16:00] VITALS: BP 112/65; PULSE 79; RESP 18; TEMP 98; O2SAT 98
[2017-08-07 20:00] VITALS: BP 109/73; PULSE 78; RESP 18; TEMP 98; O2SAT 96
[2017-08-08] VITALS: BP 112/74; PULSE 77; RESP 18; TEMP 98.1; O2SAT 96
[2017-08-08] MEDS: ACETAMINOPHEN/HYDROcodone 325 MG/7.5 MG TAB PO PRN ×4 (00:03→22:50)
[2017-08-08 04:00] VITALS: BP 114/76; PULSE 79; RESP 18; TEMP 98.3; O2SAT 96
[2017-08-08 08:00] VITALS: BP 131/80; PULSE 77; RESP 18; TEMP 97.6; O2SAT 99
[2017-08-08] MEDS: BACITRACIN TOP OINT 15 GM TUBE TOP SCH ×2 (09:00→21:00)
[2017-08-08] MEDS: MAGNESIUM HYDROXIDE SUSP 30 ML CUP PO SCH ×2 (09:00→22:50)
[2017-08-08] MEDS: POLYETHYLENE GLYCOL 17 GM PKG PO SCH (09:00)
[2017-08-08] MEDS: DOCUSATE SODIUM 50 MG/SENNA 8.6 MG TAB PO SCH ×2 (09:00→21:00)
[2017-08-08] MEDS: CALCIUM/VITAMIN D 250 MG/125 U TAB PO SCH ×3 (09:59→18:33)
[2017-08-08] MEDS: CHOLECALCIFEROL (VIT D3) 1000 UNIT TAB PO SCH (09:59)
[2017-08-08] MEDS: GABAPENTIN 300 MG CAP PO SCH ×3 (09:59→18:32)
[2017-08-08] MEDS: THIAMINE HCL 100 MG TAB PO SCH (09:59)
[2017-08-08] MEDS: ENOXAPARIN SODIUM 30 MG/0.3 ML SYRINGE SQ SCH ×2 (10:30→22:50)
[2017-08-08 12:00] VITALS: BP 114/78; PULSE 101; RESP 17; TEMP 97.8; O2SAT 98
[2017-08-08 16:00] VITALS: BP 127/84; PULSE 70; RESP 18; TEMP 97.9; O2SAT 98
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
[2017-08-08 20:50] VITALS: BP 118/72; PULSE 72; RESP 16; TEMP 98.1; O2SAT 97
[2017-08-09 00:20] VITALS: BP 112/75; PULSE 70; RESP 17; TEMP 98.3; O2SAT 99
[2017-08-09 04:30] VITALS: BP 110/70; PULSE 64; RESP 18; TEMP 98.9; O2SAT 99
[2017-08-09] MEDS: ACETAMINOPHEN/HYDROcodone 325 MG/7.5 MG TAB PO PRN ×2 (06:15→22:18)
--- NOTE | 2017-08-09 07:10 | PD.ORT.PN ---
Subjective Subjective Remarks POD 23 s/p ORIF right tibial plateau POD 20 s/p ORIF left tibial plateau doing well. no changes Objective Vitals Vital Signs Date Time Temp Pulse Resp B/P (MAP) Pulse Ox O2 Delivery O2 Flow Rate FiO2 08/09/17 00:20 98.3 70 17 112/75 (87) 99 08/08/17 20:50 98.1 72 16 118/72 (87) 97 08/08/17 16:00 97.9 70 18 127/84 (98) 98 08/08/17 12:00 97.8 101 17 114/78 (90) 98 08/08/17 08:00 97.6 77 18 131/80 (97) 99 I/O 08/08/17 08/08/17 08/08/17 08/09/17 08/09/17 08/09/17 07:00 15:00 23:00 07:00 15:00 23:00 Intake Total 1620 ml Output Total 800 ml 1550 ml Balance -800 ml 70 ml Intake Oral 1620 ml Output Urine Total 800 ml 1550 ml # Bowel Movements 1 Result Diagram: 08/06/17 0336 08/06/17 0336 Objective Remarks RLE: dressings clean and dry. incisions visualized. healed appropriately with no drainage, erythema, or swelling. nvi distally with good dorsiflexion of ankle LLE: dressings clean and dry. incisions visualized. healed appropriately with no drainage, erythema, or swelling. nvi distally with good dorsiflexion of ankle Assessment & Plan Assessment and Plan 1) Left tibia plateau fracture s/p ORIF - POD 20 -NWB -PROM of knee 0-90 -no quad sets, leg lifts, strengthening -DC melody today -daily dressing changes for 3 more days then leave open to air. 2) Right tibial plateau fracture s/p ORIF - POD 23 Nonweightbearing right leg CKS Physical therapy for passive range of motion no quad sets, leg lifts, active motion, strengthening Lovenox -DC melody today -daily dressing changes for 3 more days then leave open to air Orthopedic clear for discharge -CM for rehab placement f/u with Dr Dick or PA in 3 weeks Victorino Jones/First Liliana LYNN Aug 09, 2017 07:10
[2017-08-09 08:00] VITALS: BP 112/76; PULSE 79; RESP 16; TEMP 98.2; O2SAT 98
[2017-08-09] MEDS: DOCUSATE SODIUM 50 MG/SENNA 8.6 MG TAB PO SCH ×2 (08:30→21:00)
[2017-08-09] MEDS: MAGNESIUM HYDROXIDE SUSP 30 ML CUP PO SCH ×2 (08:30→21:00)
[2017-08-09] MEDS: GABAPENTIN 300 MG CAP PO SCH ×3 (08:31→18:00)
[2017-08-09] MEDS: POLYETHYLENE GLYCOL 17 GM PKG PO SCH (08:31)
[2017-08-09] MEDS: CALCIUM/VITAMIN D 250 MG/125 U TAB PO SCH ×3 (08:32→18:47)
[2017-08-09] MEDS: THIAMINE HCL 100 MG TAB PO SCH (08:32)
[2017-08-09] MEDS: CHOLECALCIFEROL (VIT D3) 1000 UNIT TAB PO SCH (08:33)
[2017-08-09] MEDS: BACITRACIN TOP OINT 15 GM TUBE TOP SCH ×2 (08:33→21:00)
[2017-08-09] MEDS: ENOXAPARIN SODIUM 30 MG/0.3 ML SYRINGE SQ SCH ×2 (11:46→22:15)
[2017-08-09 12:00] VITALS: BP 115/72; PULSE 75; RESP 18; TEMP 98.5; O2SAT 98
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
[2017-08-09 18:52] VITALS: BP 110/78; PULSE 84; RESP 18; TEMP 97.9; O2SAT 98
[2017-08-09 21:12] VITALS: BP 100/66; PULSE 87; RESP 20; TEMP 98.4; O2SAT 97
[2017-08-10] VITALS (7 sets, daily range): BP systolic 107–131; BP diastolic 72–82; PULSE 66–88; RESP 17–20; TEMP 97–98.8; O2SAT 95–100
[2017-08-10] MEDS: MAGNESIUM HYDROXIDE SUSP 30 ML CUP PO SCH ×2 (09:00→21:00)
[2017-08-10] MEDS: POLYETHYLENE GLYCOL 17 GM PKG PO SCH (09:00)
[2017-08-10] MEDS: CALCIUM/VITAMIN D 250 MG/125 U TAB PO SCH ×3 (10:06→17:33)
[2017-08-10] MEDS: DOCUSATE SODIUM 50 MG/SENNA 8.6 MG TAB PO SCH ×2 (10:06→21:00)
[2017-08-10] MEDS: CHOLECALCIFEROL (VIT D3) 1000 UNIT TAB PO SCH (10:07)
[2017-08-10] MEDS: GABAPENTIN 300 MG CAP PO SCH ×3 (10:07→17:33)
[2017-08-10] MEDS: THIAMINE HCL 100 MG TAB PO SCH (10:08)
[2017-08-10] MEDS: ACETAMINOPHEN/HYDROcodone 325 MG/5 MG TAB PO PRN (10:11)
[2017-08-10] MEDS: BACITRACIN TOP OINT 15 GM TUBE TOP SCH ×2 (10:11→21:00)
[2017-08-10] MEDS: ENOXAPARIN SODIUM 30 MG/0.3 ML SYRINGE SQ SCH ×2 (10:17→22:32)
[2017-08-10] MEDS: fentaNYL 25 MCG/HR PATCH T-DERMAL SCH (10:17)
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
[2017-08-10] MEDS: ACETAMINOPHEN/HYDROcodone 325 MG/7.5 MG TAB PO PRN (22:33)
[2017-08-11 04:00] VITALS: BP 143/68; PULSE 67; RESP 18; TEMP 98; O2SAT 98
[2017-08-11] MEDS: ACETAMINOPHEN/HYDROcodone 325 MG/7.5 MG TAB PO PRN ×3 (06:50→19:58)
[2017-08-11 08:28] VITALS: BP 108/63; PULSE 64; RESP 20; TEMP 98; O2SAT 100
[2017-08-11] MEDS: MAGNESIUM HYDROXIDE SUSP 30 ML CUP PO SCH ×2 (09:00→19:58)
[2017-08-11] MEDS: CHOLECALCIFEROL (VIT D3) 1000 UNIT TAB PO SCH (09:00)
[2017-08-11] MEDS: DOCUSATE SODIUM 50 MG/SENNA 8.6 MG TAB PO SCH ×2 (09:00→19:58)
[2017-08-11] MEDS: POLYETHYLENE GLYCOL 17 GM PKG PO SCH (09:00)
[2017-08-11] MEDS: GABAPENTIN 300 MG CAP PO SCH ×3 (09:11→17:09)
[2017-08-11] MEDS: ENOXAPARIN SODIUM 30 MG/0.3 ML SYRINGE SQ SCH ×2 (09:11→23:00)
[2017-08-11] MEDS: THIAMINE HCL 100 MG TAB PO SCH (09:12)
[2017-08-11] MEDS: CALCIUM/VITAMIN D 250 MG/125 U TAB PO SCH ×3 (09:12→17:09)
[2017-08-11] MEDS: BACITRACIN TOP OINT 15 GM TUBE TOP SCH ×2 (09:13→19:59)
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
[2017-08-11 12:07] VITALS: BP 105/73; PULSE 90; RESP 20; TEMP 98.5; O2SAT 98
[2017-08-11 17:06] VITALS: BP 109/76; PULSE 76; RESP 20; TEMP 98.1; O2SAT 98
[2017-08-11 20:54] VITALS: BP 133/78; PULSE 84; RESP 18; TEMP 97; O2SAT 100
[2017-08-12 01:50] VITALS: BP 110/73; PULSE 72; RESP 19; TEMP 98; O2SAT 98
[2017-08-12 06:16] VITALS: BP 108/67; PULSE 75; TEMP 98.4; O2SAT 98
[2017-08-12] MEDS: ACETAMINOPHEN/HYDROcodone 325 MG/7.5 MG TAB PO PRN ×3 (06:55→22:40)
[2017-08-12 07:54] VITALS: BP 113/65; PULSE 73; RESP 20; TEMP 97.9; O2SAT 98
[2017-08-12] MEDS: THIAMINE HCL 100 MG TAB PO SCH (08:40)
[2017-08-12] MEDS: CALCIUM/VITAMIN D 250 MG/125 U TAB PO SCH ×3 (08:40→17:41)
[2017-08-12] MEDS: CHOLECALCIFEROL (VIT D3) 1000 UNIT TAB PO SCH (08:40)
[2017-08-12] MEDS: MAGNESIUM HYDROXIDE SUSP 30 ML CUP PO SCH ×2 (08:40→21:00)
[2017-08-12] MEDS: DOCUSATE SODIUM 50 MG/SENNA 8.6 MG TAB PO SCH ×2 (08:40→21:00)
[2017-08-12] MEDS: GABAPENTIN 300 MG CAP PO SCH ×3 (08:40→17:41)
[2017-08-12] MEDS: POLYETHYLENE GLYCOL 17 GM PKG PO SCH (08:40)
[2017-08-12] MEDS: BACITRACIN TOP OINT 15 GM TUBE TOP SCH ×2 (08:42→22:42)
[2017-08-12] MEDS: ENOXAPARIN SODIUM 30 MG/0.3 ML SYRINGE SQ SCH ×2 (11:19→22:42)
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
[2017-08-12 12:51] VITALS: BP 113/72; PULSE 76; RESP 20; TEMP 97.6; O2SAT 98
[2017-08-12 16:16] VITALS: BP 133/93; PULSE 70; RESP 20; TEMP 98.3; O2SAT 99
[2017-08-12 20:45] VITALS: BP 116/83; PULSE 102; RESP 18; TEMP 98.5; O2SAT 98
[2017-08-13 01:36] VITALS: BP 118/67; PULSE 88; RESP 18; TEMP 98.7; O2SAT 98
[2017-08-13 04:52] LABS: AUTOMATED NEUTROPHIL # 2.9 TH/MM3 (1.8-7.7); BASOPHIL % 0.8 % (0.0-2.0); EOSINOPHIL # 0.2 TH/MM3 (0-0.4); EOSINOPHIL % 4.1 % (0.0-4.0); HEMATOCRIT 32.7 % (39.0-51.0); HEMOGLOBIN 10.5 GM/DL (13.0-17.0); LYMPH % 32.5 % (9.0-44.0); LYMPHOCYTE # 1.8 TH/MM3 (1.0-4.8); MEAN CELL VOLUME 89.9 FL (80.0-100.0); MEAN CORPUSCULAR HEMOGLOBIN 28.9 PG (27.0-34.0); MEAN CORPUSCULAR HGB CONC 32.1 % (32.0-36.0); MEAN PLATELET VOLUME 9.7 FL (7.0-11.0); MONO % 11.4 % (0.0-8.0); MONOCYTE # 0.6 TH/MM3 (0-0.9); NEUT % 51.2 % (16.0-70.0); PLATELET COUNT 207 TH/MM3 (150-450); RED BLOOD COUNT 3.64 MIL/MM3 (4.50-5.90); RED CELL DISTRIBUTION WIDTH 14.4 % (11.6-17.2); WHITE BLOOD COUNT 5.7 TH/MM3 (4.0-11.0)
[2017-08-13 05:07] LABS: BICARBONATE 29.2 MEQ/L (21.0-32.0); CALCIUM 8.8 MG/DL (8.5-10.1); CREATININE 0.79 MG/DL (0.60-1.30)
[2017-08-13] MEDS: ACETAMINOPHEN/HYDROcodone 325 MG/7.5 MG TAB PO PRN (06:13)
[2017-08-13 06:47] VITALS: BP 120/73; PULSE 69; RESP 18; TEMP 98.4; O2SAT 98
[2017-08-13 08:32] VITALS: BP 118/86; PULSE 80; RESP 18; TEMP 98; O2SAT 99
[2017-08-13] MEDS: MAGNESIUM HYDROXIDE SUSP 30 ML CUP PO SCH ×2 (09:07→22:29)
[2017-08-13] MEDS: POLYETHYLENE GLYCOL 17 GM PKG PO SCH (09:07)
[2017-08-13] MEDS: CHOLECALCIFEROL (VIT D3) 1000 UNIT TAB PO SCH (09:08)
[2017-08-13] MEDS: BACITRACIN TOP OINT 15 GM TUBE TOP SCH ×2 (09:08→22:30)
[2017-08-13] MEDS: THIAMINE HCL 100 MG TAB PO SCH (09:08)
[2017-08-13] MEDS: GABAPENTIN 300 MG CAP PO SCH ×3 (09:08→17:07)
[2017-08-13] MEDS: CALCIUM/VITAMIN D 250 MG/125 U TAB PO SCH ×3 (09:08→17:07)
[2017-08-13] MEDS: DOCUSATE SODIUM 50 MG/SENNA 8.6 MG TAB PO SCH ×2 (09:08→22:28)
[2017-08-13] MEDS: ENOXAPARIN SODIUM 30 MG/0.3 ML SYRINGE SQ SCH ×2 (10:46→22:29)
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
[2017-08-13 12:52] VITALS: BP 113/69; PULSE 92; RESP 18; TEMP 98.4; O2SAT 99
[2017-08-13] MEDS: ACETAMINOPHEN/HYDROcodone 325 MG/5 MG TAB PO PRN ×3 (16:20→22:36)
[2017-08-13 16:54] VITALS: BP 114/72; PULSE 86; RESP 17; TEMP 98.7; O2SAT 98
[2017-08-13 20:00] VITALS: BP 123/70; PULSE 73; RESP 18; TEMP 98.3; O2SAT 99
[2017-08-14] VITALS: BP 113/74; PULSE 67; RESP 18; TEMP 97.9; O2SAT 100
[2017-08-14 04:00] VITALS: BP 111/73; PULSE 71; RESP 18; TEMP 97.5; O2SAT 98
[2017-08-14] MEDS: ACETAMINOPHEN/HYDROcodone 325 MG/5 MG TAB PO PRN (06:20)
[2017-08-14 08:00] VITALS: BP 124/75; PULSE 66; RESP 17; TEMP 97.4; O2SAT 99
[2017-08-14] MEDS: GABAPENTIN 300 MG CAP PO SCH ×3 (09:58→18:30)
[2017-08-14] MEDS: CHOLECALCIFEROL (VIT D3) 1000 UNIT TAB PO SCH (09:58)
[2017-08-14] MEDS: DOCUSATE SODIUM 50 MG/SENNA 8.6 MG TAB PO SCH ×2 (09:58→22:02)
[2017-08-14] MEDS: CALCIUM/VITAMIN D 250 MG/125 U TAB PO SCH ×3 (09:58→18:30)
[2017-08-14] MEDS: THIAMINE HCL 100 MG TAB PO SCH (09:58)
[2017-08-14] MEDS: MAGNESIUM HYDROXIDE SUSP 30 ML CUP PO SCH ×2 (09:59→21:00)
[2017-08-14] MEDS: BACITRACIN TOP OINT 15 GM TUBE TOP SCH ×2 (09:59→22:03)
[2017-08-14] MEDS: POLYETHYLENE GLYCOL 17 GM PKG PO SCH (09:59)
[2017-08-14] MEDS: ENOXAPARIN SODIUM 30 MG/0.3 ML SYRINGE SQ SCH ×2 (10:01→22:02)
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
[2017-08-14 12:00] VITALS: BP 124/70; PULSE 85; RESP 17; TEMP 97.5; O2SAT 99
[2017-08-14] MEDS: ERGOCALCIFEROL (VIT D2) 50,000 UNIT CAP PO SCH (12:19)
[2017-08-14] MEDS: ACETAMINOPHEN/HYDROcodone 325 MG/7.5 MG TAB PO PRN ×2 (12:19→18:30)
[2017-08-14 16:00] VITALS: BP 113/67; PULSE 81; RESP 17; TEMP 97.6; O2SAT 98
[2017-08-14 20:00] VITALS: BP 130/78; PULSE 73; RESP 18; TEMP 98.1; O2SAT 99
[2017-08-15] VITALS: BP 120/71; PULSE 82; RESP 18; TEMP 98; O2SAT 98
[2017-08-15] MEDS: ACETAMINOPHEN/HYDROcodone 325 MG/7.5 MG TAB PO PRN ×3 (00:37→18:31)
[2017-08-15 04:00] VITALS: BP 115/84; PULSE 77; RESP 18; TEMP 97.9; O2SAT 98
[2017-08-15 07:59] VITALS: BP 134/79; PULSE 81; RESP 18; TEMP 98.4; O2SAT 99
[2017-08-15] MEDS: CHOLECALCIFEROL (VIT D3) 1000 UNIT TAB PO SCH (08:10)
[2017-08-15] MEDS: MAGNESIUM HYDROXIDE SUSP 30 ML CUP PO SCH ×2 (08:10→21:00)
[2017-08-15] MEDS: POLYETHYLENE GLYCOL 17 GM PKG PO SCH (08:10)
[2017-08-15] MEDS: DOCUSATE SODIUM 50 MG/SENNA 8.6 MG TAB PO SCH ×2 (08:10→21:00)
[2017-08-15] MEDS: GABAPENTIN 300 MG CAP PO SCH ×3 (08:10→17:34)
[2017-08-15] MEDS: CALCIUM/VITAMIN D 250 MG/125 U TAB PO SCH ×3 (08:11→17:34)
[2017-08-15] MEDS: BACITRACIN TOP OINT 15 GM TUBE TOP SCH ×2 (08:11→22:20)
[2017-08-15] MEDS: THIAMINE HCL 100 MG TAB PO SCH (08:11)
[2017-08-15] MEDS: ENOXAPARIN SODIUM 30 MG/0.3 ML SYRINGE SQ SCH ×2 (11:31→22:19)
[2017-08-15 12:39] VITALS: BP 126/89; PULSE 92; RESP 18; TEMP 98.1; O2SAT 98
[2017-08-15 16:00] VITALS: BP 116/65; PULSE 93; RESP 18; TEMP 98.6; O2SAT 96
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
[2017-08-15 20:30] VITALS: BP 120/69; PULSE 74; RESP 17; TEMP 98.4; O2SAT 99
[2017-08-16] MEDS: ACETAMINOPHEN/HYDROcodone 325 MG/7.5 MG TAB PO PRN ×4 (00:33→23:39)
[2017-08-16 00:45] VITALS: BP 124/72; PULSE 74; RESP 17; TEMP 98.9; O2SAT 99
[2017-08-16 05:00] VITALS: BP 123/78; PULSE 69; RESP 17; TEMP 98.3; O2SAT 99
[2017-08-16] MEDS: MAGNESIUM HYDROXIDE SUSP 30 ML CUP PO SCH ×2 (07:24→21:00)
[2017-08-16] MEDS: POLYETHYLENE GLYCOL 17 GM PKG PO SCH (07:24)
[2017-08-16] MEDS: CALCIUM/VITAMIN D 250 MG/125 U TAB PO SCH ×3 (07:25→16:33)
[2017-08-16] MEDS: THIAMINE HCL 100 MG TAB PO SCH (07:25)
[2017-08-16] MEDS: GABAPENTIN 300 MG CAP PO SCH ×3 (07:25→16:32)
[2017-08-16] MEDS: BACITRACIN TOP OINT 15 GM TUBE TOP SCH ×2 (07:25→23:46)
[2017-08-16] MEDS: CHOLECALCIFEROL (VIT D3) 1000 UNIT TAB PO SCH (07:25)
[2017-08-16] MEDS: DOCUSATE SODIUM 50 MG/SENNA 8.6 MG TAB PO SCH ×2 (07:25→21:00)
[2017-08-16 08:35] VITALS: BP 107/75; PULSE 65; RESP 16; TEMP 98.2; O2SAT 98
[2017-08-16] MEDS: ENOXAPARIN SODIUM 30 MG/0.3 ML SYRINGE SQ SCH ×2 (11:42→23:39)
[2017-08-16 12:40] VITALS: BP 117/68; PULSE 74; RESP 16; TEMP 98.7; O2SAT 100
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
[2017-08-16 16:58] VITALS: BP 131/67; PULSE 80; RESP 18; TEMP 98.2; O2SAT 98
[2017-08-16 21:15] VITALS: BP 135/77; PULSE 62; RESP 18; TEMP 97.8; O2SAT 98
[2017-08-17 02:04] VITALS: BP 112/65; PULSE 82; RESP 18; TEMP 97.6; O2SAT 100
[2017-08-17 06:13] VITALS: BP 115/70; PULSE 71; RESP 20; TEMP 97.8; O2SAT 99
[2017-08-17 08:31] VITALS: BP 115/72; PULSE 69; RESP 16; TEMP 97.9; O2SAT 99
[2017-08-17] MEDS: CALCIUM/VITAMIN D 250 MG/125 U TAB PO SCH ×3 (08:40→16:59)
[2017-08-17] MEDS: POLYETHYLENE GLYCOL 17 GM PKG PO SCH (08:40)
[2017-08-17] MEDS: CHOLECALCIFEROL (VIT D3) 1000 UNIT TAB PO SCH (08:40)
[2017-08-17] MEDS: DOCUSATE SODIUM 50 MG/SENNA 8.6 MG TAB PO SCH ×2 (08:40→21:00)
[2017-08-17] MEDS: MAGNESIUM HYDROXIDE SUSP 30 ML CUP PO SCH ×2 (08:40→21:00)
[2017-08-17] MEDS: GABAPENTIN 300 MG CAP PO SCH ×3 (08:41→16:59)
[2017-08-17] MEDS: THIAMINE HCL 100 MG TAB PO SCH (08:41)
[2017-08-17] MEDS: BACITRACIN TOP OINT 15 GM TUBE TOP SCH ×2 (08:41→21:00)
[2017-08-17] MEDS: ENOXAPARIN SODIUM 30 MG/0.3 ML SYRINGE SQ SCH ×2 (11:22→23:54)
[2017-08-17] MEDS: ACETAMINOPHEN/HYDROcodone 325 MG/7.5 MG TAB PO PRN ×2 (11:23→16:59)
[2017-08-17 12:43] VITALS: BP 165/80; PULSE 53; RESP 18; TEMP 97.8; O2SAT 97
[2017-08-17 12:45] VITALS: BP 108/74; PULSE 83; RESP 18; TEMP 97.5; O2SAT 97
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
[2017-08-17 20:26] VITALS: BP 132/63; PULSE 75; RESP 20; TEMP 98.3; O2SAT 95
[2017-08-18] VITALS: BP 118/66; PULSE 73; RESP 20; TEMP 98; O2SAT 98
[2017-08-18 05:34] VITALS: BP 132/69; PULSE 74; RESP 20; TEMP 97.9; O2SAT 97
[2017-08-18 08:00] VITALS: BP 119/76; PULSE 67; RESP 18; TEMP 97.6; O2SAT 99
[2017-08-18] MEDS: POLYETHYLENE GLYCOL 17 GM PKG PO SCH (08:37)
[2017-08-18] MEDS: MAGNESIUM HYDROXIDE SUSP 30 ML CUP PO SCH ×2 (08:37→20:26)
[2017-08-18] MEDS: DOCUSATE SODIUM 50 MG/SENNA 8.6 MG TAB PO SCH ×2 (08:37→20:26)
[2017-08-18] MEDS: BACITRACIN TOP OINT 15 GM TUBE TOP SCH ×2 (08:39→20:27)
[2017-08-18] MEDS: THIAMINE HCL 100 MG TAB PO SCH (08:39)
[2017-08-18] MEDS: GABAPENTIN 300 MG CAP PO SCH ×3 (08:39→16:54)
[2017-08-18] MEDS: ACETAMINOPHEN/HYDROcodone 325 MG/7.5 MG TAB PO PRN (08:39)
[2017-08-18] MEDS: CALCIUM/VITAMIN D 250 MG/125 U TAB PO SCH ×3 (08:39→16:54)
[2017-08-18] MEDS: CHOLECALCIFEROL (VIT D3) 1000 UNIT TAB PO SCH (08:39)
[2017-08-18] MEDS: ENOXAPARIN SODIUM 30 MG/0.3 ML SYRINGE SQ SCH ×2 (10:02→20:23)
[2017-08-18 12:00] VITALS: BP 119/80; PULSE 81; RESP 18; TEMP 97.7; O2SAT 98
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
[2017-08-18 16:00] VITALS: BP 105/78; PULSE 77; RESP 18; TEMP 98; O2SAT 99
[2017-08-18 20:00] VITALS: BP 111/58; PULSE 91; RESP 18; TEMP 97.9; O2SAT 100
[2017-08-18] MEDS: ACETAMINOPHEN/HYDROcodone 325 MG/5 MG TAB PO PRN (20:23)
[2017-08-19] VITALS: BP 115/58; PULSE 87; RESP 18; TEMP 97.4; O2SAT 100
[2017-08-19 04:00] VITALS: BP 111/77; PULSE 75; RESP 18; TEMP 97.9; O2SAT 98
[2017-08-19 08:00] VITALS: BP 125/88; PULSE 79; RESP 18; TEMP 98; O2SAT 99
[2017-08-19] MEDS: POLYETHYLENE GLYCOL 17 GM PKG PO SCH (09:00)
[2017-08-19] MEDS: MAGNESIUM HYDROXIDE SUSP 30 ML CUP PO SCH ×2 (09:00→21:00)
[2017-08-19] MEDS: DOCUSATE SODIUM 50 MG/SENNA 8.6 MG TAB PO SCH ×2 (09:00→21:00)
[2017-08-19] MEDS: GABAPENTIN 300 MG CAP PO SCH ×3 (09:32→18:03)
[2017-08-19] MEDS: THIAMINE HCL 100 MG TAB PO SCH (09:33)
[2017-08-19] MEDS: CHOLECALCIFEROL (VIT D3) 1000 UNIT TAB PO SCH (09:33)
[2017-08-19] MEDS: CALCIUM/VITAMIN D 250 MG/125 U TAB PO SCH ×3 (09:33→18:03)
[2017-08-19] MEDS: BACITRACIN TOP OINT 15 GM TUBE TOP SCH ×2 (09:33→21:00)
[2017-08-19] MEDS: ACETAMINOPHEN/HYDROcodone 325 MG/7.5 MG TAB PO PRN ×2 (09:35→15:39)
[2017-08-19 12:00] VITALS: BP 115/75; PULSE 80; RESP 16; TEMP 98.3; O2SAT 96
[2017-08-19] MEDS: ENOXAPARIN SODIUM 30 MG/0.3 ML SYRINGE SQ SCH ×2 (15:39→22:56)
[2017-08-19 16:00] VITALS: BP 113/72; PULSE 80; RESP 16; TEMP 98.2; O2SAT 98
[2017-08-19 20:00] VITALS: BP 109/80; PULSE 84; RESP 18; TEMP 97.8; O2SAT 98
[2017-08-19] MEDS: ACETAMINOPHEN/HYDROcodone 325 MG/5 MG TAB PO PRN (23:03)
[2017-08-20] VITALS: BP 116/78; PULSE 84; RESP 18; TEMP 97.5; O2SAT 96
[2017-08-20 04:00] VITALS: BP 121/87; PULSE 93; RESP 20; TEMP 98; O2SAT 95
[2017-08-20] MEDS: ACETAMINOPHEN/HYDROcodone 325 MG/5 MG TAB PO PRN ×3 (08:29→21:20)
[2017-08-20] MEDS: GABAPENTIN 300 MG CAP PO SCH ×3 (08:29→17:57)
[2017-08-20 08:30] VITALS: BP 120/74; PULSE 80; RESP 20; TEMP 97.7; O2SAT 98
[2017-08-20] MEDS: DOCUSATE SODIUM 50 MG/SENNA 8.6 MG TAB PO SCH ×2 (08:30→21:00)
[2017-08-20] MEDS: ENOXAPARIN SODIUM 30 MG/0.3 ML SYRINGE SQ SCH ×2 (12:00→21:25)
[2017-08-20 12:29] VITALS: BP 107/77; PULSE 90; RESP 20; TEMP 98.8; O2SAT 96
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
[2017-08-20 16:30] VITALS: BP 111/68; PULSE 84; RESP 16; TEMP 98.1; O2SAT 98
[2017-08-20 21:06] VITALS: BP 128/83; PULSE 75; RESP 18; TEMP 99; O2SAT 99
[2017-08-21 00:37] VITALS: BP 118/55; PULSE 76; RESP 18; TEMP 97.7; O2SAT 99
[2017-08-21 05:22] VITALS: BP 119/72; PULSE 69; RESP 18; TEMP 97.7; O2SAT 99
[2017-08-21 05:25] LABS: HEMATOCRIT 33.7 % (39.0-51.0); HEMOGLOBIN 10.8 GM/DL (13.0-17.0); MEAN CELL VOLUME 90.5 FL (80.0-100.0); MEAN CORPUSCULAR HEMOGLOBIN 28.9 PG (27.0-34.0); MEAN CORPUSCULAR HGB CONC 31.9 % (32.0-36.0); MEAN PLATELET VOLUME 9.2 FL (7.0-11.0); PLATELET COUNT 181 TH/MM3 (150-450); RED BLOOD COUNT 3.73 MIL/MM3 (4.50-5.90); RED CELL DISTRIBUTION WIDTH 14.8 % (11.6-17.2); WHITE BLOOD COUNT 5.3 TH/MM3 (4.0-11.0)
[2017-08-21 05:46] LABS: BICARBONATE 29.3 MEQ/L (21.0-32.0); CREATININE 0.84 MG/DL (0.60-1.30)
[2017-08-21] MEDS ORDERED: LACTULOSE SYRUP 20 GM/30 ML CUP PO ONE (07:45)
[2017-08-21 07:57] VITALS: BP 121/76; PULSE 74; RESP 20; TEMP 97.8; O2SAT 96
[2017-08-21] MEDS: GABAPENTIN 300 MG CAP PO SCH ×3 (08:07→17:27)
[2017-08-21] MEDS: ACETAMINOPHEN/HYDROcodone 325 MG/5 MG TAB PO PRN ×3 (08:07→20:18)
[2017-08-21] MEDS: DOCUSATE SODIUM 50 MG/SENNA 8.6 MG TAB PO SCH ×2 (08:08→20:18)
[2017-08-21] MEDS: ENOXAPARIN SODIUM 30 MG/0.3 ML SYRINGE SQ SCH ×2 (11:37→23:46)
[2017-08-21 11:39] VITALS: BP 113/73; PULSE 80; RESP 20; TEMP 97.6; O2SAT 100
[2017-08-21 20:47] VITALS: BP 123/81; PULSE 69; RESP 18; TEMP 98; O2SAT 98
[2017-08-22 09:00] VITALS: BP 135/98; PULSE 82; RESP 20; TEMP 98.6; O2SAT 99
[2017-08-22] MEDS: ENOXAPARIN SODIUM 30 MG/0.3 ML SYRINGE SQ SCH ×2 (09:46→22:25)
[2017-08-22] MEDS: ACETAMINOPHEN/HYDROcodone 325 MG/5 MG TAB PO PRN ×2 (09:46→22:25)
[2017-08-22] MEDS: GABAPENTIN 300 MG CAP PO SCH ×3 (09:47→18:00)
[2017-08-22] MEDS: DOCUSATE SODIUM 50 MG/SENNA 8.6 MG TAB PO SCH ×2 (09:47→21:00)
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
[2017-08-22 12:23] VITALS: BP 132/87; PULSE 80; RESP 20; TEMP 98.2; O2SAT 100
[2017-08-22 15:43] VITALS: BP 107/67; PULSE 78; RESP 20; TEMP 98.7; O2SAT 97
[2017-08-22 20:30] VITALS: BP 128/72; PULSE 98; RESP 18; TEMP 98.2; O2SAT 98
[2017-08-23 00:15] VITALS: BP 113/63; PULSE 85; RESP 18; TEMP 97.4; O2SAT 97
[2017-08-23 08:42] VITALS: BP 128/84; PULSE 76; RESP 20; TEMP 98.6; O2SAT 99
[2017-08-23] MEDS: DOCUSATE SODIUM 50 MG/SENNA 8.6 MG TAB PO SCH ×2 (09:00→21:10)
[2017-08-23] MEDS: GABAPENTIN 300 MG CAP PO SCH ×3 (10:45→18:58)
[2017-08-23] MEDS: ACETAMINOPHEN/HYDROcodone 325 MG/5 MG TAB PO PRN ×3 (10:48→23:50)
[2017-08-23] MEDS: ENOXAPARIN SODIUM 30 MG/0.3 ML SYRINGE SQ SCH ×2 (10:50→23:50)
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
[2017-08-23 11:57] VITALS: BP 123/75; PULSE 67; RESP 20; TEMP 97.6; O2SAT 98
[2017-08-23 15:52] VITALS: BP 120/66; PULSE 80; RESP 20; TEMP 97.7; O2SAT 98
[2017-08-23] MEDS: IBUPROFEN 400 MG TAB PO PRN (21:09)
[2017-08-23 21:20] VITALS: BP 120/85; PULSE 74; RESP 16; TEMP 97.8; O2SAT 98
[2017-08-24 00:30] VITALS: BP 118/86; PULSE 75; RESP 17; TEMP 98.8; O2SAT 97
[2017-08-24 04:45] VITALS: BP 99/70; PULSE 67; RESP 17; TEMP 98.2; O2SAT 98
[2017-08-24] MEDS: ACETAMINOPHEN/HYDROcodone 325 MG/5 MG TAB PO PRN ×3 (05:29→18:28)
[2017-08-24 08:00] VITALS: BP 123/84; PULSE 73; RESP 17; TEMP 97.8; O2SAT 100
[2017-08-24] MEDS: GABAPENTIN 300 MG CAP PO SCH ×3 (08:36→18:00)
[2017-08-24] MEDS: DOCUSATE SODIUM 50 MG/SENNA 8.6 MG TAB PO SCH ×2 (08:36→21:00)
[2017-08-24] MEDS: ENOXAPARIN SODIUM 30 MG/0.3 ML SYRINGE SQ SCH ×2 (11:00→11:47)
[2017-08-24 12:00] VITALS: BP 120/88; PULSE 92; RESP 17; TEMP 97.6; O2SAT 95
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
[2017-08-24 16:00] VITALS: BP 119/64; PULSE 82; RESP 17; TEMP 97.9; O2SAT 99
[2017-08-24 21:40] VITALS: BP 99/67; PULSE 73; RESP 18; TEMP 98; O2SAT 99
[2017-08-25] VITALS: BP 100/65; PULSE 70; RESP 19; TEMP 97.6; O2SAT 99
[2017-08-25 04:50] VITALS: BP 101/64; PULSE 64; RESP 20; TEMP 98.4; O2SAT 100
[2017-08-25 08:00] VITALS: BP 122/77; PULSE 79; RESP 17; TEMP 97.6; O2SAT 98
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
[2017-08-25] MEDS: DOCUSATE SODIUM 50 MG/SENNA 8.6 MG TAB PO SCH ×2 (09:00→21:00)
[2017-08-25] MEDS: GABAPENTIN 300 MG CAP PO SCH (09:48)
[2017-08-25] MEDS: ACETAMINOPHEN/HYDROcodone 325 MG/5 MG TAB PO PRN ×3 (09:48→23:50)
[2017-08-25] MEDS: ENOXAPARIN SODIUM 30 MG/0.3 ML SYRINGE SQ SCH ×2 (11:00→22:07)
[2017-08-25 12:00] VITALS: BP 131/75; PULSE 70; RESP 17; TEMP 97.5; O2SAT 100
[2017-08-25 16:00] VITALS: BP 119/84; PULSE 86; RESP 17; TEMP 98.3; O2SAT 99
[2017-08-25 20:42] VITALS: BP 118/76; PULSE 79; RESP 16; TEMP 97.8; O2SAT 99
[2017-08-26 04:09] VITALS: BP 115/70; PULSE 70; RESP 18; TEMP 98; O2SAT 100
[2017-08-26] MEDS: ACETAMINOPHEN/HYDROcodone 325 MG/5 MG TAB PO PRN ×3 (06:32→18:48)
[2017-08-26 08:00] VITALS: BP 124/64; PULSE 83; RESP 17; TEMP 98.5; O2SAT 98
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
[2017-08-26] MEDS: DOCUSATE SODIUM 50 MG/SENNA 8.6 MG TAB PO SCH ×2 (09:00→21:00)
[2017-08-26 12:00] VITALS: BP 111/76; PULSE 86; RESP 17; TEMP 97.5; O2SAT 98
[2017-08-26] MEDS: ENOXAPARIN SODIUM 30 MG/0.3 ML SYRINGE SQ SCH ×2 (13:29→22:07)
[2017-08-26 20:00] VITALS: BP 117/74; PULSE 64; RESP 20; TEMP 97.8; O2SAT 97
[2017-08-27] MEDS: ACETAMINOPHEN/HYDROcodone 325 MG/5 MG TAB PO PRN ×2 (00:55→22:10)
[2017-08-27 06:14] LABS: AUTOMATED NEUTROPHIL # 2.2 TH/MM3 (1.8-7.7); BASOPHIL % 0.8 % (0.0-2.0); EOSINOPHIL # 0.2 TH/MM3 (0-0.4); EOSINOPHIL % 4.5 % (0.0-4.0); HEMATOCRIT 36.6 % (39.0-51.0); HEMOGLOBIN 11.6 GM/DL (13.0-17.0); LYMPH % 40.8 % (9.0-44.0); MEAN CELL VOLUME 89.6 FL (80.0-100.0); MEAN CORPUSCULAR HEMOGLOBIN 28.4 PG (27.0-34.0); MEAN CORPUSCULAR HGB CONC 31.7 % (32.0-36.0); MONO % 10.9 % (0.0-8.0); MONOCYTE # 0.5 TH/MM3 (0-0.9); PLATELET COUNT 227 TH/MM3 (150-450); RED BLOOD COUNT 4.09 MIL/MM3 (4.50-5.90); RED CELL DISTRIBUTION WIDTH 14.6 % (11.6-17.2)
[2017-08-27 06:33] LABS: ALBUMIN 2.8 GM/DL (3.4-5.0); ALT (GPT) 25 U/L (12-78); AST (GOT) 13 U/L (15-37); BICARBONATE 23.9 MEQ/L (21.0-32.0); BLOOD UREA NITROGEN 13 MG/DL (7-18); CALCIUM 8.7 MG/DL (8.5-10.1); CHLORIDE 106 MEQ/L (98-107); CREATININE 0.77 MG/DL (0.60-1.30); GLOMERULAR FILTRATION RATE 127 ML/MIN (>89); GLUCOSE,RANDOM 81 MG/DL (74-106); SODIUM (NA) 137 MEQ/L (136-145)
[2017-08-27 06:36] LABS: ALKALINE PHOSPHATASE 130 U/L (45-117); TOTAL BILIRUBIN ADULT 0.3 MG/DL (0.2-1.0); TOTAL PROTEIN 7.3 GM/DL (6.4-8.2)
[2017-08-27 08:00] VITALS: BP 114/76; PULSE 65; RESP 18; TEMP 97.9; O2SAT 98
[2017-08-27] MEDS: DOCUSATE SODIUM 50 MG/SENNA 8.6 MG TAB PO SCH ×2 (09:00→21:00)
[2017-08-27] MEDS: ENOXAPARIN SODIUM 30 MG/0.3 ML SYRINGE SQ SCH ×2 (11:00→22:11)
[2017-08-27 20:00] VITALS: BP 117/67; PULSE 90; RESP 20; TEMP 98.3; O2SAT 98
[2017-08-28] VITALS: BP 116/76; PULSE 78; RESP 18; TEMP 98.2; O2SAT 97
[2017-08-28 04:00] VITALS: BP 118/71; PULSE 70; RESP 18; TEMP 98.4; O2SAT 97
[2017-08-28 08:00] VITALS: BP 116/74; PULSE 76; RESP 18; TEMP 98.3; O2SAT 97
[2017-08-28] MEDS: DOCUSATE SODIUM 50 MG/SENNA 8.6 MG TAB PO SCH ×2 (09:00→21:00)
[2017-08-28] MEDS: ENOXAPARIN SODIUM 30 MG/0.3 ML SYRINGE SQ SCH ×2 (09:39→23:00)
[2017-08-28] MEDS: ACETAMINOPHEN/HYDROcodone 325 MG/5 MG TAB PO PRN ×2 (09:39→23:03)
[2017-08-28 20:00] VITALS: BP 124/71; PULSE 77; RESP 18; TEMP 98.3; O2SAT 99
[2017-08-29] VITALS: BP 127/74; PULSE 73; RESP 18; TEMP 98.1; O2SAT 99
[2017-08-29 04:00] VITALS: BP 108/63; PULSE 67; RESP 18; TEMP 98; O2SAT 99
[2017-08-29 08:28] VITALS: BP 114/69; PULSE 81; RESP 20; TEMP 98.3; O2SAT 99
[2017-08-29] MEDS: DOCUSATE SODIUM 50 MG/SENNA 8.6 MG TAB PO SCH ×2 (08:36→22:05)
[2017-08-29] MEDS: IBUPROFEN 400 MG TAB PO PRN ×2 (08:39→12:56)
[2017-08-29] MEDS: ENOXAPARIN SODIUM 30 MG/0.3 ML SYRINGE SQ SCH ×2 (11:17→22:05)
[2017-08-29 12:00] VITALS: BP 117/60; PULSE 61; RESP 20; TEMP 98.4; O2SAT 100
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
[2017-08-29 16:00] VITALS: BP 113/64; PULSE 68; RESP 20; TEMP 98.1; O2SAT 99
[2017-08-29 20:00] VITALS: BP 113/61; PULSE 72; RESP 18; TEMP 98.6; O2SAT 98
[2017-08-30] VITALS: BP 108/67; PULSE 78; RESP 18; TEMP 97.8; O2SAT 99
[2017-08-30 04:00] VITALS: BP 113/77; PULSE 78; RESP 18; TEMP 98.1; O2SAT 100
[2017-08-30 08:22] VITALS: BP 119/70; PULSE 76; RESP 20; TEMP 98; O2SAT 98
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
[2017-08-30] MEDS: DOCUSATE SODIUM 50 MG/SENNA 8.6 MG TAB PO SCH ×2 (09:00→20:52)
[2017-08-30] MEDS: ENOXAPARIN SODIUM 30 MG/0.3 ML SYRINGE SQ SCH ×2 (11:41→22:06)
[2017-08-30 12:00] VITALS: BP 125/86; PULSE 66; RESP 20; TEMP 97.5; O2SAT 100
[2017-08-30 16:00] VITALS: BP 114/75; PULSE 77; RESP 20; TEMP 98; O2SAT 98
[2017-08-30 20:00] VITALS: BP 118/75; PULSE 70; RESP 16; TEMP 97.9; O2SAT 98
[2017-08-30] MEDS: METHOCARBAMOL 500 MG TAB PO PRN (20:52)
[2017-08-31 07:53] VITALS: BP 116/77; PULSE 78; RESP 20; TEMP 98.5; O2SAT 100
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
[2017-08-31] MEDS: DOCUSATE SODIUM 50 MG/SENNA 8.6 MG TAB PO SCH ×2 (09:00→20:59)
[2017-08-31] MEDS: ENOXAPARIN SODIUM 30 MG/0.3 ML SYRINGE SQ SCH ×2 (09:09→23:41)
[2017-08-31] MEDS: IBUPROFEN 400 MG TAB PO PRN ×3 (09:09→21:00)
[2017-08-31 11:47] VITALS: BP 112/81; PULSE 74; RESP 20; TEMP 98.2; O2SAT 100
[2017-08-31 16:19] VITALS: BP 126/80; PULSE 75; RESP 20; TEMP 97.8; O2SAT 100
[2017-08-31 20:30] VITALS: BP_SYST 100; BP_SYST 125; BP_DIAS 59; BP_DIAS 76; PULSE 60; PULSE 93; RESP 17; TEMP 97.6; TEMP 99.7; O2SAT 100; O2SAT 96
[2017-08-31] MEDS: METHOCARBAMOL 500 MG TAB PO PRN (21:00)
[2017-09-01 08:00] VITALS: BP 119/67; PULSE 64; RESP 16; TEMP 97.7; O2SAT 100
[2017-09-01] MEDS: DOCUSATE SODIUM 50 MG/SENNA 8.6 MG TAB PO SCH ×2 (08:48→21:00)
[2017-09-01] MEDS: ENOXAPARIN SODIUM 30 MG/0.3 ML SYRINGE SQ SCH ×2 (10:09→23:48)
[2017-09-01 12:00] VITALS: BP 123/83; PULSE 95; RESP 18; TEMP 97.7; O2SAT 99
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
[2017-09-01 20:00] VITALS: BP 111/73; PULSE 74; RESP 20; TEMP 97.1; O2SAT 99
[2017-09-01] MEDS: IBUPROFEN 400 MG TAB PO PRN (23:48)
[2017-09-02] VITALS: BP 120/73; PULSE 73; RESP 18; TEMP 98.4; O2SAT 98
[2017-09-02 04:00] VITALS: BP 116/68; PULSE 67; RESP 18; TEMP 97.7; O2SAT 98
[2017-09-02 08:00] VITALS: BP 114/83; PULSE 76; RESP 17; TEMP 98.2; O2SAT 100
[2017-09-02] MEDS: DOCUSATE SODIUM 50 MG/SENNA 8.6 MG TAB PO SCH ×2 (09:30→21:00)
[2017-09-02] MEDS: ENOXAPARIN SODIUM 30 MG/0.3 ML SYRINGE SQ SCH ×2 (11:19→22:00)
[2017-09-02 12:00] VITALS: BP 110/81; PULSE 74; RESP 18; TEMP 98; O2SAT 100
[2017-09-02 20:00] VITALS: BP 118/72; PULSE 79; RESP 20; TEMP 97.7; O2SAT 100
[2017-09-02] MEDS: IBUPROFEN 400 MG TAB PO PRN (22:00)
[2017-09-03] VITALS: BP 106/67; PULSE 83; RESP 18; TEMP 98; O2SAT 99
[2017-09-03 04:00] VITALS: BP 108/70; PULSE 64; RESP 20; TEMP 98.4; O2SAT 99
[2017-09-03 08:18] VITALS: BP 135/76; PULSE 94; RESP 20; TEMP 97.8; O2SAT 100
[2017-09-03] MEDS: DOCUSATE SODIUM 50 MG/SENNA 8.6 MG TAB PO SCH (10:01)
[2017-09-03] MEDS: ENOXAPARIN SODIUM 30 MG/0.3 ML SYRINGE SQ SCH (10:04)
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
== END 2017-09-03 16:32 | disposition left against medical advice (07) | DRG 493 ==
LOC: NEPI 17:23 → NEDA 18:49 → OBSVTOIN 19:03 → MERGE 19:03 → EDBD 19:03 → N05A 21:18 → H4EN 09-03 13:00
PROVIDERS: ADMIT Surgery Trauma Surgery; ATTEND Surgery Trauma Surgery
PROC: 0HQ1XZZ Repair Face Skin, External Approach (ICD-10-PCS; 2017-07-14)
PROC: 0QSH35Z Reposition Left Tibia with External Fixation Device, Percutaneous Approach (ICD-10-PCS; principal; 2017-07-17 13:11)
PROC: 0QSG04Z Reposition Right Tibia with Internal Fixation Device, Open Approach (ICD-10-PCS; 2017-07-17 13:11)
PROC: 0QSH04Z Reposition Left Tibia with Internal Fixation Device, Open Approach (ICD-10-PCS; 2017-07-20)
PROC: 0QPHX5Z Removal of External Fixation Device from Left Tibia, External Approach (ICD-10-PCS; 2017-07-20)
DX: S82.142A Displaced bicondylar fracture of left tibia, initial encounter for closed fracture (principal); S02.19XA Other fracture of base of skull, initial encounter for closed fracture; M25.062 Hemarthrosis, left knee; S01.81XA Laceration without foreign body of other part of head, initial encounter; S82.401A Unspecified fracture of shaft of right fibula, initial encounter for closed fracture; S82.141A Displaced bicondylar fracture of right tibia, initial encounter for closed fracture; F10.129 Alcohol abuse with intoxication, unspecified; Y90.8 Blood alcohol level of 240 mg/100 ml or more; M25.462 Effusion, left knee; M25.461 Effusion, right knee; Z23 Encounter for immunization; Z59.0 Homelessness; V03.10XA Pedestrian on foot injured in collision with car, pick-up truck or van in traffic accident, initial encounter
CPT/HCPCS: 12054; 70450; 70486; 71010; 71260; 72125; 72170; 73030; 73560; 73590; 73700; 74177; 76000; 80048; 80053; 80307; 82435; 82565; 82652; 82947; 84132; 84295; 84520; 85014; 85018; 85025; 85027; 85610; 85730; 86850; 86900; 86901; 87641; 90471; 90732; 93005; 94150; 96374; 99291; C1713; G0390; J0131; J0330; J0690; J1100; J1170; J1580; J1650; J1670; J1885; J2250; J2270; J2370; J2405; J3010; J3370; J3411; J7040; J7050; J7120; L1830; Q9967